=== PATIENT | female | born 1985 | race Two or more races ===

== ENCOUNTER 2018-07-28 20:34 | Emergency (ER) | payer MEDICARE, OTHER ==
[~2018-07-28] VITALS: Ht 157.5 cm; Wt 90.7 kg
--- NOTE | 2018-07-28 20:53 | NUR ---
admitted to er rm 2b ambulatory c/o constant headache for 1 month. bp checked 139/93. dr ryder will see & evaluate pt.
[2018-07-28] MEDS ORDERED: HYDROMORPHONE 2 MG/1 ML DISP.SYRIN ONE (20:58)
[2018-07-28] MEDS ORDERED: ONDANSETRON 4 MG/2 ML VIAL ONE (20:58)
[2018-07-28] MEDS ORDERED: ONDANSETRON 4 MG/2 ML VIAL IM ONE (21:00)
[2018-07-28] MEDS ORDERED: HYDROMORPHONE 1 MG/1 ML DISP.SYRIN IM ONE (21:00)
[2018-07-28 21:23] VITALS: BP 130/91
--- NOTE | 2018-07-28 21:25 | NUR ---
Patient discharged to home in stable conditon. Written and verbal after care instructions given. Patient verbalizes understanding of instructions.
== END 2018-07-28 21:25 | disposition home or self-care (01) ==
LOC: ER 20:34
DX: G43.909 Migraine, unspecified, not intractable, without status migrainosus (principal); I10 Essential (primary) hypertension; E03.9 Hypothyroidism, unspecified; F12.10 Cannabis abuse, uncomplicated; Z88.5 Allergy status to narcotic agent; Z88.8 Allergy status to other drugs, medicaments and biological substances
CPT/HCPCS: 96372 ×2; 99284; J1170; J2405; A4663

== ENCOUNTER 2018-08-01 15:54 | Emergency (ER) | payer MEDICARE, MEDICAID ==
[~2018-08-01] VITALS: Ht 152.4 cm; Wt 90.7 kg
--- NOTE | 2018-08-01 17:07 | NUR ---
Doctor at bedside examining patient.
--- NOTE | 2018-08-01 17:42 | NUR ---
Pt went for CT scan, ambulating in the presence of human resources technician
--- NOTE | 2018-08-01 17:43 | NUR ---
Pt refused blood draw. Physician aware.
--- NOTE | 2018-08-01 17:53 | NUR ---
PT. BACK FROM CT.
--- NOTE | 2018-08-01 18:10 | NUR ---
Report given to head charger.
[2018-08-01 18:17] LABS: BASOPHILS % (AUTO) 0.4 % (0.0-2.0); EOSINOPHILS # (AUTO) 0.1 K/uL (0.0-0.7); EOSINOPHILS % (AUTO) 1.3 % (0.0-7.0); HEMATOCRIT 40.4 % (31.2-41.9); HEMOGLOBIN 13.7 g/dL (10.9-14.3); LYMPHOCYTES # (AUTO) 2.2 K/uL (20.0-40.0); LYMPHOCYTES % (AUTO) 23.7 % (20.5-51.5); MEAN CORPUSCULAR HEMOGLOBIN 29.3 uug (24.7-32.8); MEAN CORPUSCULAR HGB CONC 34 g/dL (32.3-35.6); MEAN CORPUSCULAR VOLUME 86.6 fL (75.5-95.3); MONOCYTES # (AUTO) 0.5 K/uL (2.0-10.0); MONOCYTES % (AUTO) 5.8 % (0.0-11.0); NEUTROPHILS # (AUTO) 6.4 K/uL (1.8-8.9); NEUTROPHILS % (AUTO) 68.8 % (38.5-71.5); PLATELET COUNT (AUTO) 331 K/uL (179-408); RED BLOOD CELL COUNT(AUTO) 4.66 MIL/uL (3.63-4.92); WHITE BLOOD COUNT (AUTO) 9.4 K/uL (3.8-11.8)
[2018-08-01 18:26] LABS: CARBON DIOXIDE 24 mmol/L (21-32); CHLORIDE 105 mmol/L (98-107); CREATININE 0.7 mg/dL (0.6-1.3); GLUCOSE 81 mg/dL (74-106); POTASSIUM 3.8 mmol/L (3.5-5.1); UREA NITROGEN, BLOOD 16 mg/dL (7-18)
[2018-08-01 18:33] LABS: ALANINE AMINOTRANSFERASE 45 U/L (14-59); ALKALINE PHOSPHATASE 107 U/L (50-136); ASPARTATE AMINOTRANSFERASE 36 U/L (15-37); BILIRUBIN,DIRECT 0.1 mg/dL (0.0-0.2); BILIRUBIN,TOTAL 0.3 mg/dL (0.2-1.0); LIPASE 172 U/L (73-393); TOTAL PROTEIN, SERUM 7.4 g/dL (6.4-8.2)
== END 2018-08-01 18:45 | disposition home or self-care (01) ==
LOC: ER 15:56
DX: K27.9 Peptic ulcer, site unspecified, unspecified as acute or chronic, without hemorrhage or perforation (principal); I10 Essential (primary) hypertension; E03.9 Hypothyroidism, unspecified; F12.10 Cannabis abuse, uncomplicated; Z88.5 Allergy status to narcotic agent
CPT/HCPCS: 36415; 70030-TC; 83690; 85025; 85730; 93005; A4663

== ENCOUNTER 2018-08-05 15:02 | Emergency (ER) | payer MEDICARE, MEDICAID ==
[~2018-08-05] VITALS: Ht 160 cm; Wt 90.7 kg
[2018-08-05] MEDS ORDERED: KETOROLAC TROMETHAMINE 30 MG INJ IM ONE (15:45)
[2018-08-05] MEDS ORDERED: KETOROLAC TROMETHAMINE 30 MG INJ ONE (15:51)
--- NOTE | 2018-08-05 15:52 | NUR ---
Patient discharged to home in stable conditon & brisk steady gait. Written and verbal after care instructions given to patient and family. Patient and family verbalized understanding of instructions.
== END 2018-08-05 15:53 | disposition home or self-care (01) ==
LOC: ER 15:02
DX: R51 Headache (principal); F41.9 Anxiety disorder, unspecified; I10 Essential (primary) hypertension; E03.9 Hypothyroidism, unspecified; F12.10 Cannabis abuse, uncomplicated; Z88.5 Allergy status to narcotic agent; Z88.8 Allergy status to other drugs, medicaments and biological substances
CPT/HCPCS: 96372; 99283; J1885; A4663

== ENCOUNTER 2018-08-07 19:41 | Emergency (ER) | payer MEDICARE, MEDICAID ==
[~2018-08-07] VITALS: Ht 157.5 cm; Wt 90.7 kg
--- NOTE | 2018-08-07 19:58 | NUR ---
PATIENT COMES IN FROM HOME, SHE WAS SEEN IN THIS ER FOR C/O HEADACHES [address] MIXON. PATIENT WAS SENT HOME WITH INSTRUCTION TO F/U W/ NEUROLOGY. SHE IS UNABLE TO OBTAIN AN APPOINTMENT AT THIS TIME DUE TO A LENGTHY REFERAL PROCESS FROM [facility]. SHE COMES IN TODAY STATING HER SYMPTOMS ARE BECOMING WORSE AND SHE IS NOT IMPROVING WITH HER MOTRIN RX
--- NOTE | 2018-08-07 20:05 | NUR ---
Dr. Eddy at bedside for MSE.
[2018-08-07] MEDS ORDERED: HYDROMORPHONE HCL 2 MG TABLET PO ONE (20:15)
[2018-08-07] MEDS ORDERED: ONDANSETRON ODT 4 MG TAB.RAPDIS SL ONE (20:15)
[2018-08-07] MEDS ORDERED: diphenhydrAMINE 50 MG CAPSULE PO ONE (20:15)
[2018-08-07] MEDS ORDERED: HYDROMORPHONE HCL 2 MG TABLET ONE (20:18)
[2018-08-07] MEDS ORDERED: ONDANSETRON ODT 4 MG TAB.RAPDIS ONE (20:19)
[2018-08-07] MEDS ORDERED: diphenhydrAMINE 50 MG CAPSULE ONE (20:19)
--- NOTE | 2018-08-07 20:28 | NUR ---
Patient discharged to home in stable conditon. Written and verbal after care instructions given. Patient verbalizes understanding of instructions. Pt ambulated out of ER with steady gait, no acute signs of distress, VSS, all belongings taken.
[2018-08-07 20:31] VITALS: BP 146/98
== END 2018-08-07 20:31 | disposition home or self-care (01) ==
LOC: ER 19:43
DX: G89.29 Other chronic pain (principal); R51 Headache; I10 Essential (primary) hypertension; E03.9 Hypothyroidism, unspecified; F12.10 Cannabis abuse, uncomplicated; Z88.5 Allergy status to narcotic agent; Z88.8 Allergy status to other drugs, medicaments and biological substances
CPT/HCPCS: 99284; Q0163; A4663; Q0162

== ENCOUNTER 2018-08-11 19:19 | Emergency (ER) | payer MEDICARE, MEDICAID ==
--- NOTE | 2018-08-11 19:55 | NUR ---
PATIENT LEFT WITHOUT BEING SEEN BY ERMD OR TRIAGED
[2018-08-12] MEDS ORDERED: LEVO75TA7 PO (16:48)
[2018-08-12] MEDS ORDERED: DESV100T PO (16:48)
[2018-08-12] MEDS ORDERED: GABA800T2 PO (16:48)
[2018-08-12] MEDS ORDERED: PROP80CA PO (16:49)
[2018-08-12] MEDS ORDERED: LISI-607 PO (16:49)
== END 2018-08-11 19:58 | disposition left against medical advice (07) ==
LOC: ER 19:20
DX: Z53.21 Procedure and treatment not carried out due to patient leaving prior to being seen by health care provider (principal)

== ENCOUNTER 2018-08-12 16:40 | Emergency (ER) | payer MEDICARE, MEDICAID ==
[~2018-08-12] VITALS: Ht 157.5 cm; Wt 90.7 kg
[2018-08-12] MEDS ORDERED: GABA800T2 PO (16:48)
[2018-08-12] MEDS ORDERED: LEVO75TA7 PO (16:48)
[2018-08-12] MEDS ORDERED: DESV100T PO (16:48)
[2018-08-12] MEDS ORDERED: LISI-607 PO (16:49)
[2018-08-12] MEDS ORDERED: PROP80CA PO (16:49)
[2018-08-12] MEDS ORDERED: HYDROMORPHONE 2 MG/1 ML DISP.SYRIN ONE (16:59)
[2018-08-12] MEDS ORDERED: diphenhydrAMINE 50 MG/1 ML VIAL ONE (16:59)
[2018-08-12] MEDS: diphenhydrAMINE 50 MG/1 ML VIAL IM ONE (17:03)
[2018-08-12] MEDS: HYDROMORPHONE 1 MG/1 ML DISP.SYRIN IM ONE (17:03)
--- NOTE | 2018-08-12 17:05 | NUR ---
Patient discharged to home in stable conditon. Written and verbal after care instructions given. Patient verbalizes understanding of instructions.PT WALKS IN STEADY GAIT. PT USING UBER, NOT DRIVING.
== END 2018-08-12 17:07 | disposition home or self-care (01) ==
LOC: ER 16:40
DX: R51 Headache (principal); I10 Essential (primary) hypertension; E03.9 Hypothyroidism, unspecified; F12.10 Cannabis abuse, uncomplicated; Z88.5 Allergy status to narcotic agent; Z88.8 Allergy status to other drugs, medicaments and biological substances
CPT/HCPCS: 96372 ×2; 99284; J1170; J1200; A4663

== ENCOUNTER 2018-08-15 16:19 | Emergency (ER) | payer MEDICARE, MEDICAID ==
[~2018-08-15] VITALS: Ht 157.5 cm; Wt 86.2 kg
[~2018-08-15 16:19] MED LIST: DESV100T PO; GABA800T2 PO; LEVO75TA7 PO; LISI-607 PO; PROP80CA PO
--- NOTE | 2018-08-15 16:40 | NUR ---
Pt was triaged and placed in ER waiting room.
--- NOTE | 2018-08-15 17:01 | NUR ---
Pt was not found in ER waiting room.
== END 2018-08-15 17:09 | disposition left against medical advice (07) ==
LOC: ER 16:19
DX: Z53.21 Procedure and treatment not carried out due to patient leaving prior to being seen by health care provider (principal)
CPT/HCPCS: A4663

== ENCOUNTER 2018-08-16 20:28 | Emergency (ER) | payer MEDICARE, MEDICAID ==
[~2018-08-16] VITALS: Ht 157.5 cm; Wt 89.4 kg
[2018-08-16] MEDS ORDERED: KETOROLAC TROMETHAMINE 15 MG INJ IM ONE (21:00)
[2018-08-16] MEDS ORDERED: KETOROLAC TROMETHAMINE 15 MG INJ ONE (21:01)
== END 2018-08-16 21:08 | disposition home or self-care (01) ==
LOC: ER 20:30
DX: R51 Headache (principal); I10 Essential (primary) hypertension; E03.9 Hypothyroidism, unspecified; F12.10 Cannabis abuse, uncomplicated; Z88.5 Allergy status to narcotic agent; Z88.8 Allergy status to other drugs, medicaments and biological substances
CPT/HCPCS: 96372; 99283; J1885; A4663

== ENCOUNTER 2018-09-01 18:09 | Emergency (ER) | payer MEDICARE, MEDICAID ==
[~2018-09-01] VITALS: Ht 157.5 cm; Wt 84.8 kg
== END 2018-09-01 18:27 | disposition left against medical advice (07) ==
LOC: ER 18:10
DX: Z53.21 Procedure and treatment not carried out due to patient leaving prior to being seen by health care provider (principal)
CPT/HCPCS: A4663

== ENCOUNTER 2020-02-24 15:52 | Emergency (ER) | payer MEDICARE, OTHER ==
[~2020-02-24] VITALS: Ht 157.5 cm; Wt 104.3 kg
[~2020-02-24 15:52] MED LIST changes: +GABA800T11 PO; -GABA800T2 PO; -PROP80CA PO; +PROP80CA51 PO
[2020-02-24] MEDS ORDERED: IV NORMAL SALINE 1000 ML BAG IV ONE (16:15)
[2020-02-24] MEDS ORDERED: LORAZEPAM 2 MG/1 ML VIAL IV ONE (16:15)
[2020-02-24] MEDS ORDERED: THIAMINE HCL 200 MG/2 ML VIAL IV ONE (16:15)
[2020-02-24] MEDS ORDERED: ONDANSETRON 4 MG/2 ML VIAL IV ONE (16:15)
[2020-02-24] MEDS ORDERED: FOLIC ACID/VITAMIN B COMP W-C TABLET PO SCH (16:15)
[2020-02-24] MEDS ORDERED: THIAMINE HCL 200 MG/2 ML VIAL ONE (16:31)
[2020-02-24] MEDS ORDERED: ONDANSETRON 4 MG/2 ML VIAL ONE (16:31)
[2020-02-24] MEDS ORDERED: LORAZEPAM 2 MG/1 ML VIAL ONE (16:32)
[2020-02-24 16:41] LABS: BASOPHILS % (AUTO) 0.4 % (0.0-2.0); EOSINOPHILS # (AUTO) 0.1 K/uL (0.0-0.7); EOSINOPHILS % (AUTO) 0.5 % (0.0-7.0); HEMATOCRIT 33.9 % (31.2-41.9); LYMPHOCYTES # (AUTO) 2.8 K/uL (20.0-40.0); LYMPHOCYTES % (AUTO) 24.7 % (20.5-51.5); MEAN CORPUSCULAR HEMOGLOBIN 22.3 uug (24.7-32.8); MEAN CORPUSCULAR HGB CONC 32 g/dL (32.3-35.6); MEAN CORPUSCULAR VOLUME 68.9 fL (75.5-95.3); MONOCYTES # (AUTO) 0.7 K/uL (2.0-10.0); MONOCYTES % (AUTO) 6.3 % (0.0-11.0); NEUTROPHILS # (AUTO) 7.7 K/uL (1.8-8.9); NEUTROPHILS % (AUTO) 68.1 % (38.5-71.5); PLATELET COUNT (AUTO) 531 K/uL (179-408); RED BLOOD CELL COUNT(AUTO) 4.93 MIL/uL (3.63-4.92); WHITE BLOOD COUNT (AUTO) 11.3 K/uL (3.8-11.8)
[2020-02-24 16:45] LABS: CREATININE 0.8 mg/dL (0.6-1.3); POTASSIUM 3.3 mmol/L (3.5-5.1)
[2020-02-24] MEDS ORDERED: MULTIVIT, IRON, MIN NO. 8, FA TABLET PO SCH (16:45)
[2020-02-24 16:51] LABS: BILIRUBIN,DIRECT 0.1 mg/dL (0.0-0.2); BILIRUBIN,TOTAL 0.2 mg/dL (0.2-1.0); TOTAL PROTEIN, SERUM 7.6 g/dL (6.4-8.2)
--- NOTE | 2020-02-24 17:54 | NUR ---
Patient discharged to home in stable condition. Written and verbal after care instructions given. Patient verbalizes understanding of instructions. pt walks in steady gait. pt not driving. pt says feels better. Stressed follow up or return to ER for worsening s/s.
[2020-02-24 17:55] VITALS: BP 131/81
== END 2020-02-24 17:56 | disposition home or self-care (01) ==
LOC: ER 16:00
DX: F10.239 Alcohol dependence with withdrawal, unspecified (principal); Y90.6 Blood alcohol level of 120-199 mg/100 ml; R25.1 Tremor, unspecified; E03.9 Hypothyroidism, unspecified; G43.909 Migraine, unspecified, not intractable, without status migrainosus; I10 Essential (primary) hypertension; Z90.721 Acquired absence of ovaries, unilateral; Z79.890 Hormone replacement therapy; Z79.899 Other long term (current) drug therapy
CPT/HCPCS: 36415; 71045; 80048; 80076; 80307; 82140; 83690; 84443; 84484; 85025; 85730; 93005; 96361; 96374; 96375; 99285; J2060; J2405; J3411; 70030-TC; A4663; G0480; J7030

== ENCOUNTER 2020-03-12 07:15 | Emergency (ER) | payer MEDICARE, OTHER ==
[~2020-03-12] VITALS: Ht 157.5 cm; Wt 104.3 kg
--- NOTE | 2020-03-12 07:38 | NUR ---
Dr. Álvarez at bedside for MSE
[2020-03-12] MEDS ORDERED: CLONAZEPAM 0.5 MG TABLET PO ONE (07:45)
[2020-03-12] MEDS ORDERED: CLONAZEPAM 1 MG TABLET ONE (07:52)
[2020-03-12 08:06] LABS: BASOPHILS # (AUTO) 0.1 K/uL (0.0-8.0); BASOPHILS % (AUTO) 0.7 % (0.0-2.0); EOSINOPHILS # (AUTO) 0.1 K/uL (0.0-0.7); EOSINOPHILS % (AUTO) 1.1 % (0.0-7.0); HEMATOCRIT 32.4 % (31.2-41.9); HEMOGLOBIN 10.1 g/dL (10.9-14.3); LYMPHOCYTES # (AUTO) 3.1 K/uL (20.0-40.0); LYMPHOCYTES % (AUTO) 27.4 % (20.5-51.5); MEAN CORPUSCULAR HEMOGLOBIN 21.3 uug (24.7-32.8); MEAN CORPUSCULAR HGB CONC 31 g/dL (32.3-35.6); MEAN CORPUSCULAR VOLUME 68.1 fL (75.5-95.3); MONOCYTES # (AUTO) 0.7 K/uL (2.0-10.0); MONOCYTES % (AUTO) 6.6 % (0.0-11.0); NEUTROPHILS # (AUTO) 7.2 K/uL (1.8-8.9); NEUTROPHILS % (AUTO) 64.2 % (38.5-71.5); PLATELET COUNT (AUTO) 494 K/uL (179-408); RED BLOOD CELL COUNT(AUTO) 4.76 MIL/uL (3.63-4.92); WHITE BLOOD COUNT (AUTO) 11.2 K/uL (3.8-11.8)
[2020-03-12 08:21] LABS: CREATININE 0.8 mg/dL (0.6-1.3); POTASSIUM 3.2 mmol/L (3.5-5.1)
[2020-03-12] MEDS ORDERED: LOPERAMIDE HCL 2 MG CAPSULE ONE (08:25)
[2020-03-12 08:28] LABS: BILIRUBIN,DIRECT 0.1 mg/dL (0.0-0.2); BILIRUBIN,TOTAL 0.4 mg/dL (0.2-1.0); TOTAL PROTEIN, SERUM 7.5 g/dL (6.4-8.2)
[2020-03-12] MEDS ORDERED: POTASSIUM BICARBONATE/CIT AC 25 MEQ TABLET.EFF ONE (08:30)
[2020-03-12] MEDS ORDERED: POTASSIUM BICARBONATE/CIT AC 25 MEQ TABLET.EFF PO ONE (08:30)
[2020-03-12] MEDS ORDERED: LOPERAMIDE HCL 2 MG CAPSULE PO ONE (08:30)
[2020-03-12 08:34] LABS: THYROID STIMULATING HORMONE 1.909 mIU/mL (0.358-3.740)
--- NOTE | 2020-03-12 09:19 | NUR ---
Patient discharged to home in stable condition. Written and verbal after care instructions given. Patient verbalizes understanding of instructions. Stressed follow up or return to ER for worsening s/s. Patient ambulating with steady gait. Patient's friend at waiting room to take patient home. NAD noted
[2020-03-12 09:20] VITALS: BP 142/83
== END 2020-03-12 09:19 | disposition home or self-care (01) ==
LOC: ER 07:15
DX: F41.9 Anxiety disorder, unspecified (principal); G25.71 Drug induced akathisia; F10.21 Alcohol dependence, in remission; E03.9 Hypothyroidism, unspecified; Z79.890 Hormone replacement therapy; Z79.899 Other long term (current) drug therapy; E87.6 Hypokalemia; K52.9 Noninfective gastroenteritis and colitis, unspecified
CPT/HCPCS: 36415; 70030-TC; 83735; 84443; 85025; A4663

== ENCOUNTER 2020-03-26 06:00 | Emergency (ER) | payer MEDICARE, OTHER ==
[~2020-03-26] VITALS: Ht 157.5 cm; Wt 104.3 kg
[2020-03-26] MEDS ORDERED: VENL150C2 PO (06:06)
--- NOTE | 2020-03-26 06:23 | NUR ---
Dr. Jacobson at bedside for MSE.
[2020-03-26] MEDS ORDERED: LORAZEPAM 2 MG/1 ML VIAL ONE (06:28)
[2020-03-26 06:30] VITALS: BP 123/84
[2020-03-26] MEDS ORDERED: LORAZEPAM 2 MG/1 ML VIAL IM ONE (06:30)
--- NOTE | 2020-03-26 06:30 | NUR ---
Patient discharged to home in stable condition. Written and verbal after care instructions given. Patient verbalizes understanding of instructions. Stressed follow up or return to ER for worsening s/s. Patient ambulated out of ER with steady gait, no acute signs of distress, VSS, all belongings taken.
== END 2020-03-26 06:30 | disposition home or self-care (01) ==
LOC: ER 06:02
DX: F41.9 Anxiety disorder, unspecified (principal); I10 Essential (primary) hypertension; Z98.84 Bariatric surgery status; Z86.69 Personal history of other diseases of the nervous system and sense organs; F31.9 Bipolar disorder, unspecified; E03.9 Hypothyroidism, unspecified
CPT/HCPCS: 96372; 99283; J2060; A4663

== ENCOUNTER 2020-03-29 17:18 | Emergency (ER) | payer MEDICARE, OTHER ==
[~2020-03-29] VITALS: Ht 157.5 cm; Wt 104.3 kg
[~2020-03-29 17:18] MED LIST changes: -DESV100T PO; +VENL150C2 PO
--- NOTE | 2020-03-29 17:38 | NUR ---
DR GUERRERO AT BEDSIDE FOR EVAL
[2020-03-29] MEDS ORDERED: ALPRAZOLAM 0.25 MG TABLET PO ONE (17:45)
--- NOTE | 2020-03-29 17:45 | NUR ---
MEDICATION GIVEN ORDERED. PATIENT STATES SHE IS NOT DRIVING. SHE STATES SHE UNDERSTANDS ALL PRECAUTONS AND WARNINGS STATED TO HER ABOUT XANAX.
[2020-03-29] MEDS ORDERED: ALPRAZOLAM 0.5 MG TABLET ONE (17:46)
--- NOTE | 2020-03-29 17:46 | NUR ---
DC AND FOLLOW UP INSTRUCTIONS GIVEN AND EXPLAINED TO PATIENT WHO STATES SHE UNDERSTANDS ALL INSTRUCTIONS INCLUDING XANAX PRECAUTIONS.
== END 2020-03-29 17:47 | disposition home or self-care (01) ==
LOC: ER 17:21
DX: F41.9 Anxiety disorder, unspecified (principal); F10.21 Alcohol dependence, in remission; F31.9 Bipolar disorder, unspecified; E03.9 Hypothyroidism, unspecified; I10 Essential (primary) hypertension; F41.0 Panic disorder [episodic paroxysmal anxiety]; Z86.69 Personal history of other diseases of the nervous system and sense organs; Z79.899 Other long term (current) drug therapy; Z79.890 Hormone replacement therapy
CPT/HCPCS: A4663

== ENCOUNTER 2020-08-11 21:44 | Emergency (ER) | payer MEDICARE, OTHER ==
[~2020-08-11] VITALS: Ht 157.5 cm; Wt 104.3 kg
--- NOTE | 2020-08-11 23:10 | NUR ---
Patient states she drinks 12 pack of beer in the last 2 weeks. Came in requesting to be medical cleared so she can admit herself to an MHU facility as a voluntary admission. Patient with no N/V, tremors noted. Denies any distress.
[2020-08-11 23:47] LABS: BASOPHILS # (AUTO) 0.1 K/uL (0.0-8.0); BASOPHILS % (AUTO) 0.8 % (0.0-2.0); EOSINOPHILS # (AUTO) 0.1 K/uL (0.0-0.7); EOSINOPHILS % (AUTO) 1.3 % (0.0-7.0); HEMATOCRIT 43.9 % (31.2-41.9); HEMOGLOBIN 14.9 g/dL (10.9-14.3); LYMPHOCYTES # (AUTO) 4.1 K/uL (20.0-40.0); LYMPHOCYTES % (AUTO) 37.4 % (20.5-51.5); MEAN CORPUSCULAR HEMOGLOBIN 26.9 uug (24.7-32.8); MEAN CORPUSCULAR HGB CONC 34 g/dL (32.3-35.6); MEAN CORPUSCULAR VOLUME 79.1 fL (75.5-95.3); MONOCYTES # (AUTO) 0.6 K/uL (2.0-10.0); MONOCYTES % (AUTO) 5.6 % (0.0-11.0); NEUTROPHILS # (AUTO) 6.1 K/uL (1.8-8.9); NEUTROPHILS % (AUTO) 54.9 % (38.5-71.5); PLATELET COUNT (AUTO) 400 K/uL (179-408); RED BLOOD CELL COUNT(AUTO) 5.55 MIL/uL (3.63-4.92); WHITE BLOOD COUNT (AUTO) 11.1 K/uL (3.8-11.8)
[2020-08-12 00:02] LABS: BILIRUBIN,DIRECT 0.1 mg/dL (0.0-0.2); BILIRUBIN,TOTAL 0.1 mg/dL (0.2-1.0); CREATININE 0.7 mg/dL (0.6-1.3); TOTAL PROTEIN, SERUM 8.1 g/dL (6.4-8.2)
[2020-08-12 00:07] LABS: POTASSIUM 2.8 mmol/L (3.5-5.1)
[2020-08-12] MEDS ORDERED: POTASSIUM BICARBONATE/CIT AC 25 MEQ TABLET.EFF PO ONE (00:15)
[2020-08-12] MEDS ORDERED: POTASSIUM BICARBONATE/CIT AC 25 MEQ TABLET.EFF ONE (00:38)
[2020-08-12] MEDS ORDERED: LORAZEPAM 0.5 MG TABLET ONE (00:39)
[2020-08-12] MEDS ORDERED: LORAZEPAM 0.5 MG TABLET PO ONE (00:45)
--- NOTE | 2020-08-12 00:56 | NUR ---
Patient discharged to home in stable condition with [facility] taking patient home. Written and verbal after care instructions given. Patient verbalizes understanding of instructions. Stressed follow up or return to ER for worsening s/s.
[2020-08-12 01:01] VITALS: BP 125/89
== END 2020-08-12 01:02 | disposition home or self-care (01) ==
LOC: ER 21:48
DX: Z02.2 Encounter for examination for admission to residential institution (principal); F10.20 Alcohol dependence, uncomplicated; E87.6 Hypokalemia; R00.0 Tachycardia, unspecified; I45.10 Unspecified right bundle-branch block; F31.9 Bipolar disorder, unspecified; E03.9 Hypothyroidism, unspecified; Z79.890 Hormone replacement therapy; I10 Essential (primary) hypertension; Z79.899 Other long term (current) drug therapy; Z86.69 Personal history of other diseases of the nervous system and sense organs
CPT/HCPCS: 36415; 85025; 93005; A4663

== ENCOUNTER 2020-11-12 07:59 | Emergency (ER) | payer MEDICARE, OTHER ==
[~2020-11-12] VITALS: Ht 157.5 cm; Wt 104.3 kg
[~2020-11-12 07:59] MED LIST changes: -LISI-607 PO; +LISI-782 PO
[2020-11-12] MEDS ORDERED: LEVO75TA7 PO (08:18)
[2020-11-12] MEDS ORDERED: HYDR50TA4 PO (08:18)
[2020-11-12] MEDS ORDERED: LURA80TA PO (08:18)
[2020-11-12] MEDS ORDERED: ONDANSETRON 4 MG/2 ML VIAL IV ONE (08:30)
[2020-11-12] MEDS ORDERED: IV NORMAL SALINE 1000 ML BAG IV ONE (08:30)
[2020-11-12] MEDS ORDERED: LORAZEPAM 2 MG/1 ML VIAL IV ONE ×2 (08:30→09:45)
--- NOTE | 2020-11-12 08:30 | NUR ---
Patient walked into ER with steady gait A/Ox3 c/o RIVAS with hematoma on right orbital, bilateral lower extremity and right arm pain. Patient states she has been binge drinking for the past 4 days and fell and hit head within the last 4 days. Also c/o ETOH withdrawal with nausea.
[2020-11-12] MEDS ORDERED: LORAZEPAM 2 MG/1 ML VIAL ONE ×2 (08:41→09:45)
[2020-11-12] MEDS ORDERED: ONDANSETRON 4 MG/2 ML VIAL ONE (08:41)
--- NOTE | 2020-11-12 08:41 | NUR ---
Patient out of unit for ct scan
[2020-11-12 08:56] LABS: BASOPHILS % (AUTO) 0.5 % (0.0-2.0); HEMATOCRIT 43.3 % (31.2-41.9); HEMOGLOBIN 14.7 g/dL (10.9-14.3); LYMPHOCYTES # (AUTO) 2.1 K/uL (20.0-40.0); LYMPHOCYTES % (AUTO) 28.2 % (20.5-51.5); MEAN CORPUSCULAR HEMOGLOBIN 26.7 uug (24.7-32.8); MEAN CORPUSCULAR HGB CONC 34 g/dL (32.3-35.6); MEAN CORPUSCULAR VOLUME 78.7 fL (75.5-95.3); MONOCYTES # (AUTO) 0.8 K/uL (2.0-10.0); MONOCYTES % (AUTO) 10.8 % (0.0-11.0); NEUTROPHILS # (AUTO) 4.6 K/uL (1.8-8.9); NEUTROPHILS % (AUTO) 60.5 % (38.5-71.5); PLATELET COUNT (AUTO) 277 K/uL (179-408); WHITE BLOOD COUNT (AUTO) 7.5 K/uL (3.8-11.8)
--- NOTE | 2020-11-12 08:56 | NUR ---
Patient back from ct scan with no distress noted.
--- NOTE | 2020-11-12 09:00 | NUR ---
Patient able tolerate PO fluid with no N/V.
[2020-11-12 09:05] LABS: CREATININE 0.7 mg/dL (0.6-1.3); POTASSIUM 4.4 mmol/L (3.5-5.1)
[2020-11-12 09:16] LABS: BILIRUBIN,DIRECT 0.5 mg/dL (0.0-0.2); BILIRUBIN,TOTAL 0.3 mg/dL (0.2-1.0); TOTAL PROTEIN, SERUM 7.4 g/dL (6.4-8.2)
[2020-11-12] MEDS ORDERED: LORA-259 PO (10:18)
--- NOTE | 2020-11-12 10:21 | NUR ---
IV removed. Catheter intact and site benign. Pressure and 4x4 gauze applied to site. No bleeding noted.
--- NOTE | 2020-11-12 10:25 | NUR ---
Patient requesting to be D/C'ed.
--- NOTE | 2020-11-12 10:33 | NUR ---
Patient discharged to home in stable condition. Written and verbal after care instructions given. Patient verbalizes understanding of instructions. Stressed follow up or return to ER for worsening s/s.
[2020-11-12 10:34] VITALS: BP 150/100
== END 2020-11-12 10:35 | disposition home or self-care (01) ==
LOC: ER 07:59
DX: F10.239 Alcohol dependence with withdrawal, unspecified (principal); F10.229 Alcohol dependence with intoxication, unspecified; Y90.6 Blood alcohol level of 120-199 mg/100 ml; S00.11XA Contusion of right eyelid and periocular area, initial encounter; W19.XXXA Unspecified fall, initial encounter; Y92.89 Other specified places as the place of occurrence of the external cause; E86.0 Dehydration; R74.01 Elevation of levels of liver transaminase levels; I10 Essential (primary) hypertension; F31.9 Bipolar disorder, unspecified; E07.9 Disorder of thyroid, unspecified; Z79.890 Hormone replacement therapy; Z98.84 Bariatric surgery status; Z90.721 Acquired absence of ovaries, unilateral; R51.9 Headache, unspecified; Z88.6 Allergy status to analgesic agent; Z79.899 Other long term (current) drug therapy
CPT/HCPCS: 36415; 70450; 70480; 80048; 80076; 80320; 85025; 96361; 96374; 96375; 96376; 99285; J2060 ×2; J2405; A4663; G0480; J7030

== ENCOUNTER 2020-11-30 21:33 | Inpatient (IN) | payer MEDICARE, OTHER ==
[~2020-11-30] VITALS: Ht 162.6 cm; Wt 112.6 kg
[~2020-11-30 21:33] MED LIST changes: +HYDR50TA4 PO; +LORA-259 PO; +LURA80TA PO
[2020-11-30] MEDS ORDERED: IV NS 1000 ML 1,000 ML IV ONE (22:15)
[2020-11-30] MEDS ORDERED: HALOPERIDOL LACTATE 5 MG/1 ML VIAL ONE (22:27)
[2020-11-30] MEDS ORDERED: HALOPERIDOL LACTATE 5 MG/1 ML VIAL IM ONE (22:30)
[2020-11-30 22:34] LABS: BASOPHILS % (AUTO) 0.3 % (0.0-2.0); HEMATOCRIT 42.2 % (31.2-41.9); HEMOGLOBIN 13.8 g/dL (10.9-14.3); LYMPHOCYTES # (AUTO) 1.9 K/uL (20.0-40.0); LYMPHOCYTES % (AUTO) 12.4 % (20.5-51.5); MEAN CORPUSCULAR HEMOGLOBIN 26.2 uug (24.7-32.8); MEAN CORPUSCULAR HGB CONC 33 g/dL (32.3-35.6); MEAN CORPUSCULAR VOLUME 80.2 fL (75.5-95.3); MONOCYTES # (AUTO) 1.8 K/uL (2.0-10.0); MONOCYTES % (AUTO) 11.8 % (0.0-11.0); NEUTROPHILS # (AUTO) 11.8 K/uL (1.8-8.9); NEUTROPHILS % (AUTO) 75.5 % (38.5-71.5); PLATELET COUNT (AUTO) 549 K/uL (179-408); RED BLOOD CELL COUNT(AUTO) 5.27 MIL/uL (3.63-4.92); WHITE BLOOD COUNT (AUTO) 15.7 K/uL (3.8-11.8)
[2020-11-30 22:47] LABS: ABG BASE EXCESS -10.9 mmol/L; ABG HCO3 13.3 mmol/L; ABG PCO2 26.2 mmHg (35.0-45.0); ABG PH 7.324 (7.350-7.450); ABG PO2 80.1 mmHg (75.0-100.0); ABG SITE RIGHT RADIAL; ABG TOTAL HEMOGLOBIN 13.8 G/dL (12.0-16.0); MetHb 0.2 % (0.0-1.5); O2Hb 93.4 % (94.0-97.0)
[2020-11-30 22:50] LABS: BILIRUBIN,DIRECT 0.2 mg/dL (0.0-0.2); BILIRUBIN,TOTAL 0.3 mg/dL (0.2-1.0); CREATININE 1.3 mg/dL (0.6-1.3); POTASSIUM 3.6 mmol/L (3.5-5.1)
[2020-11-30] MEDS ORDERED: HYDR50TA61 PO (23:24)
[2020-11-30] MEDS ORDERED: POTA-10 PO (23:24)
[2020-11-30] MEDS ORDERED: TRIH2TAB4 PO (23:24)
[2020-11-30] MEDS ORDERED: CLON1TAB PO (23:24)
[2020-11-30] MEDS ORDERED: CLON-418 PO (23:24)
[2020-11-30] MEDS ORDERED: KETAMINE HCL 500 MG/10 ML INJ ONE (23:59)
[2020-12-01] MEDS ORDERED: AZITHROMYCIN IV 500 MG in IV DEXTROSE 5% 250 ML IV ONE
[2020-12-01] MEDS ORDERED: PIPERACILLIN SODIUM/TAZOBACTAM 3.375 G in IV DEXTROSE 5% 50 ML IV ONE
[2020-12-01] MEDS ORDERED: PIPERACILLIN/TAZOBACTAM/D5W 50 ML IV ONE (00:12)
[2020-12-01] MEDS ORDERED: FOLIC ACID 5 MG/ML VIAL IV ONE ×2 (00:30→00:33)
[2020-12-01] MEDS ORDERED: THIAMINE HCL 200 MG/2 ML VIAL IV ONE (00:30)
[2020-12-01] MEDS ORDERED: IV LACTATED RINGERS SOLUTION 1,000 ML IV PRN (00:30)
[2020-12-01] MEDS ORDERED: THIAMINE HCL 200 MG/2 ML VIAL ONE ×2 (00:32→05:16)
[2020-12-01] MEDS: MAGNESIUM SULFATE/D5W 100 ML IV SCH ×2 (00:33→01:38)
[2020-12-01] MEDS ORDERED: MAGNESIUM SULFATE 1 GM/2 ML VIAL ONE (00:33)
[2020-12-01] MEDS ORDERED: AZITHROMYCIN 500 MG VIAL IV ONE (00:40)
[2020-12-01 00:46] LABS: CREATININE 1.1 mg/dL (0.6-1.3); POTASSIUM 3.4 mmol/L (3.5-5.1)
--- NOTE | 2020-12-01 01:10 | NUR ---
Patient states " Im going to poop on the bed just to make you clean it up". Patient educated on self perineal care and independent self care. patient attempted to get out of bed, increasingly agitated, stating " Im gonna shit all over it and make you clean it, ceci thats what you guys do!"
[2020-12-01] MEDS ORDERED: KETAMINE HCL 500 MG/10 ML INJ ONE ×2 (01:39→04:30)
[2020-12-01] MEDS ORDERED: KETAMINE HCL 500 MG/10 ML INJ IVP ONE (01:45)
[2020-12-01] MEDS ORDERED: KETAMINE HCL 500 MG/10 ML INJ IM ONE (01:45)
--- NOTE | 2020-12-01 01:59 | NUR ---
Patient in bed, continues to be agitated, Awaiting further plan of care updates/inpatient admission.
--- NOTE | 2020-12-01 02:28 | NUR ---
Patient noted with 1 large BM, perineal care provided, Patient placed in diaper
--- NOTE | 2020-12-01 02:44 | NUR ---
Panel call placed to [facility] for panel call
--- NOTE | 2020-12-01 02:57 | NUR ---
Patient to be admitted to Tele-TD, report to Jose Eduardo BERTRAND. Admitting Provider; Yovany Delvalle
[2020-12-01] MEDS ORDERED: IV D5W 1000ML 1,000 ML IV ONE (03:15)
[2020-12-01] MEDS ORDERED: IV D5/ 0.9% NACL 1,000 ML IV PRN (03:15)
[2020-12-01] MEDS ORDERED: THIAMINE HCL INJ 100 MG in IV DEXTROSE 5% 50 ML IV SCH ×2 (03:15→21:00)
[2020-12-01] MEDS ORDERED: ACETAMINOPHEN 325 MG TABLET PO PRN ×2 (03:15→04:15)
[2020-12-01] MEDS ORDERED: MAGNESIUM HYDROXIDE 30 ML LIQUID UDC PO PRN (03:15)
[2020-12-01] MEDS ORDERED: Z GUARD REMEDY PASTE 57 GM TUBE TOP PRN (03:15)
[2020-12-01] MEDS ORDERED: IV D5LR 1,000 ML IV ONE (03:15)
[2020-12-01] MEDS ORDERED: ONDANSETRON 4 MG/2 ML VIAL IV PRN (03:15)
[2020-12-01] MEDS ORDERED: FOLIC ACID 1 MG in IV DEXTROSE 5% 50 ML IV SCH ×2 (03:30→22:00)
--- NOTE | 2020-12-01 03:40 | NUR ---
Admitted a 35 y.o female with a diagnosis of alcoholic ketoacidosis. Pt transferred to bed, safety measures initiated, admission care rendered. Pt.was drowsy, combative and restless. Incontinent of BM, cleaned and kept dry. IV access gauge 16 on R AC intact and patent. Unable to put on tele box secondary to patient's restlessness. Skin with multiple bruising and with R periorbital hematoma. Sindy Pedroza, SCAGLIOLA MECHANIC with admission orders and carried out. Patient's behavior relayed to SCAGLIOLA MECHANIC. Ativan 2mg as given earlier, no avail. Ketalar 20mg ordered but not available, and is not allowed to be administered at bedside. continue to monitor patient's condition. Haldol 5mg IM given for severe agitation and disruptive behavior. IV access had been reinserted multiple times secondary to patient's actions. Still continuos screaming and yelling. Multiple attempts of getting OOB. Soft wrist restraints applied as ordered to prevent pulling out of medical devices.
[2020-12-01] MEDS ORDERED: hydrOXYzine HCL 25 MG TABLET PO PRN (03:45)
[2020-12-01 04:00] VITALS: BP 133/14
[2020-12-01] MEDS ORDERED: KETAMINE HCL 500 MG/10 ML INJ IV ONE ×3 (04:00→04:45)
[2020-12-01] MEDS ORDERED: CLONIDINE HCL 0.2 MG TABLET PO PRN (04:15)
[2020-12-01] MEDS: LORAZEPAM 2 MG/1 ML VIAL IV PRN ×2 (04:19→08:01)
[2020-12-01] MEDS ORDERED: HALOPERIDOL LACTATE 5 MG/1 ML VIAL IM ONE (04:45)
[2020-12-01] MEDS: POTASSIUM CHLORIDE 50 ML IV SCH ×2 (04:59→05:00)
--- NOTE | 2020-12-01 05:00 | NUR ---
Ordered medications administered and tolerated well. Tele reading is sinus Tach with 135. Neurochecks done and recorded.
[2020-12-01] MEDS ORDERED: PYRIDOXINE HCL 100 MG/1 ML VIAL ONE (05:15)
[2020-12-01] MEDS ORDERED: PANTOPRAZOLE SODIUM 40 MG TABLET.DR PO SCH (07:00)
[2020-12-01] MEDS ORDERED: LEVOTHYROXINE SODIUM 75 MCG TABLET PO SCH (07:00)
--- NOTE | 2020-12-01 07:00 | NUR ---
Pt refused ABG. RN aware.
[2020-12-01 07:15] LABS: BASOPHILS % (AUTO) 0.3 % (0.0-2.0); HEMATOCRIT 36.3 % (31.2-41.9); LYMPHOCYTES # (AUTO) 3.2 K/uL (20.0-40.0); LYMPHOCYTES % (AUTO) 26.5 % (20.5-51.5); MEAN CORPUSCULAR HEMOGLOBIN 26.3 uug (24.7-32.8); MEAN CORPUSCULAR HGB CONC 33 g/dL (32.3-35.6); MEAN CORPUSCULAR VOLUME 79.8 fL (75.5-95.3); MONOCYTES % (AUTO) 8.2 % (0.0-11.0); NEUTROPHILS # (AUTO) 7.9 K/uL (1.8-8.9); PLATELET COUNT (AUTO) 423 K/uL (179-408); RED BLOOD CELL COUNT(AUTO) 4.55 MIL/uL (3.63-4.92); WHITE BLOOD COUNT (AUTO) 12.1 K/uL (3.8-11.8)
--- NOTE | 2020-12-01 07:30 | NUR ---
Endorsed to AM nurse in apparently fair condition. IV access on right AC 22 gauge intact and patent. No acute distress at this time. Frequent monitoring to continue.
[2020-12-01 07:39] LABS: BILIRUBIN,TOTAL 0.6 mg/dL (0.2-1.0); CREATININE 0.9 mg/dL (0.6-1.3); MAGNESIUM 1.6 mg/dL (1.8-2.4); PHOSPHOROUS 1.7 mg/dL (2.5-4.9); POTASSIUM 3.6 mmol/L (3.5-5.1); TOTAL PROTEIN, SERUM 7.4 g/dL (6.4-8.2)
[2020-12-01] MEDS ORDERED: PIPERACILLIN SODIUM/TAZOBACTAM 3.375 G in IV DEXTROSE 5% 50 ML IV SCH (08:00)
[2020-12-01] MEDS ORDERED: PIPERACILLIN SODIUM/TAZOBACTAM 3.37 G in IV DEXTROSE 5% 100 ML IV SCH (08:00)
[2020-12-01 08:28] LABS: THYROID STIMULATING HORMONE 1.765 mIU/mL (0.358-3.740)
[2020-12-01] MEDS ORDERED: VENLAFAXINE XR 150 MG CAP.SR.24H PO SCH (09:00)
[2020-12-01] MEDS ORDERED: MAGNESIUM SULFATE/D5W 100 ML IV SCH (09:15)
[2020-12-01] MEDS: GABAPENTIN 400 MG CAPSULE PO SCH ×2 (09:16→12:58)
[2020-12-01] MEDS ORDERED: LORAZEPAM 2 MG/1 ML VIAL IV ONE (10:30)
--- NOTE | 2020-12-01 12:12 | NUR ---
Cardiac Care Unit Nurse Notes: Reason for SS assessment is ETOH. Patient is a 35 year old female. Per patient's medical records, patient was brought in to the ED last night for binge drinking for the past 4 days, along with disruptive behavior such as breaking object in her home and falling. Per patient's medical records, patient states that it is the anniversary of her mother's and her stillborn child. Per medical records, and nursing report, patient has been agitated, yelling, and uncooperative. SW entered patient's room and attempted to meet with this patient. Patient presents lethargic and speech is mumbled and unclear. Per sitter, patient was given Ativan about 1-2 hours ago, and therefore has been sleepy. SW unable to complete assessment at this time, however SW will follow-up at a later time.
--- NOTE | 2020-12-01 14:33 | NUR ---
PATIENT LEAVING AMA. EXTENSIVE CONVERSATION WITH BLOW PIT OPERATOR AND RN REGARDING HER CONDITION AND THE IMPORTANCE OF HER GETTING TREATED. VERBALIZED UNDERSTANDING. PATIENT STILL INSIST LEAVING AGAINST MEDICAL ADVICE. IV REMOVED. NO S/S OF BLEEDING. ID BAND REMOVED. BELONGINGS RETURNED. BLOW PIT OPERATOR NOTIFIED ABOUT PATIENT WISH TO LEAVE.
[2020-12-01] MEDS ORDERED: NEUTRA PHOS PACKET PO ONE (14:45)
--- NOTE | 2020-12-01 14:48 | NUR ---
2:30pm: This SW followed-up with the patient. SW was informed by JERZY Escobar that patient has decided to go AMA. SW met with the patient, who was awake, sitting on her bed, trying to make a phone call in order to arrange a ride. SW attempted to assess patient's needs, and patient stood up, attempting to get dressed. Patient observed to have slightly unsteady gait. Patient then sat down on her bed, and stated in a loud voice "why are you asking me these questions!" SW explained to the patient that SW was trying to assess patient's needs for supportive resources. Patient then responded in a louder voice "I don't need your services!" SW ended the interview. SW informed JERZY Escobar of above.
== END 2020-12-01 14:45 | disposition left against medical advice (07) | DRG 894 ==
LOC: ER 21:34 → TELE-TD3 12-01 03:30 → TELE3 12-01 08:12
PROVIDERS: ADMIT Nurse Practitioner Acute Care; ATTEND Nurse Practitioner Acute Care
DX: F10.139 Alcohol abuse with withdrawal, unspecified (principal); J69.0 Pneumonitis due to inhalation of food and vomit; G92 Toxic encephalopathy; J15.6 Pneumonia due to other Gram-negative bacteria; E87.2 Acidosis; E87.1 Hypo-osmolality and hyponatremia; Y90.8 Blood alcohol level of 240 mg/100 ml or more; E03.9 Hypothyroidism, unspecified; S00.03XA Contusion of scalp, initial encounter; Z20.822 Contact with and (suspected) exposure to COVID-19; W18.30XA Fall on same level, unspecified, initial encounter; Y93.89 Activity, other specified; Y92.009 Unspecified place in unspecified non-institutional (private) residence as the place of occurrence of the external cause; S05.12XA Contusion of eyeball and orbital tissues, left eye, initial encounter; E86.0 Dehydration; F32.9 Major depressive disorder, single episode, unspecified; F41.9 Anxiety disorder, unspecified; E11.65 Type 2 diabetes mellitus with hyperglycemia; Z98.84 Bariatric surgery status
CPT/HCPCS: 36415; 36600; 70030-TC; 70450; 71045; 72125; 83605; 83735; 84100; 84443; 85025; 87040; 93005; A4663; G0378; G0480; J0456; J1630; J2060; J2543; J3411; J3415; J3475; J3480; J3490; J7040; J7042; J7060; J7070; J7120

== ENCOUNTER 2021-01-06 06:49 | Emergency (ER) | payer MEDICARE, OTHER ==
[~2021-01-06] VITALS: Ht 157.5 cm; Wt 104.3 kg
[~2021-01-06 06:49] MED LIST changes: +CLON-418 PO; +CLON1TAB PO; +HYDR50TA61 PO; -LISI-782 PO; -LORA-259 PO; +POTA-10 PO; -PROP80CA51 PO; +TRIH2TAB4 PO
[2021-01-06] MEDS ORDERED: IV NORMAL SALINE 1000 ML BAG IV ONE (07:15)
--- NOTE | 2021-01-06 07:15 | NUR ---
at bedside for assessment
[2021-01-06] MEDS ORDERED: CHLORDIAZEPOXIDE HCL 25 MG CAPSULE PO ONE (07:30)
[2021-01-06 07:41] LABS: BASOPHILS # (AUTO) 0.1 K/uL (0.0-8.0); BASOPHILS % (AUTO) 0.8 % (0.0-2.0); EOSINOPHILS # (AUTO) 0.1 K/uL (0.0-0.7); EOSINOPHILS % (AUTO) 0.6 % (0.0-7.0); HEMATOCRIT 38.1 % (31.2-41.9); HEMOGLOBIN 12.7 g/dL (10.9-14.3); LYMPHOCYTES % (AUTO) 18.1 % (20.5-51.5); MEAN CORPUSCULAR HEMOGLOBIN 26.6 uug (24.7-32.8); MEAN CORPUSCULAR HGB CONC 34 g/dL (32.3-35.6); MEAN CORPUSCULAR VOLUME 79.5 fL (75.5-95.3); MONOCYTES # (AUTO) 0.5 K/uL (2.0-10.0); MONOCYTES % (AUTO) 4.6 % (0.0-11.0); NEUTROPHILS # (AUTO) 8.6 K/uL (1.8-8.9); NEUTROPHILS % (AUTO) 75.9 % (38.5-71.5); PLATELET COUNT (AUTO) 420 K/uL (179-408); RED BLOOD CELL COUNT(AUTO) 4.79 MIL/uL (3.63-4.92); WHITE BLOOD COUNT (AUTO) 11.3 K/uL (3.8-11.8)
--- NOTE | 2021-01-06 07:44 | NUR ---
IV removed, patient wishes to leave AMA
--- NOTE | 2021-01-06 07:47 | NUR ---
Patient does not wish to proceed with medical care recommended by Dr. Combs. Patient given information related to possible complications, up to and including , which could occur as a result of leaving the hospital at this time. Patient verbalizes understanding of risks involved due to leaving against medical advice. Patient has signed AMA form.
[2021-01-06 07:48] LABS: CARBON DIOXIDE 28 mmol/L (21-32); CHLORIDE 100 mmol/L (98-107); CREATININE 0.7 mg/dL (0.6-1.3); GLUCOSE 177 mg/dL (74-106); UREA NITROGEN, BLOOD 8 mg/dL (7-18)
[2021-01-06 07:50] VITALS: BP 143/83
[2021-01-06 07:54] LABS: ALANINE AMINOTRANSFERASE 94 U/L (14-59); ALKALINE PHOSPHATASE 113 U/L (50-136); ASPARTATE AMINOTRANSFERASE 101 U/L (15-37); BILIRUBIN,DIRECT 0.1 mg/dL (0.0-0.2); BILIRUBIN,TOTAL 0.3 mg/dL (0.2-1.0); CREATINE KINASE, TOTAL 267 U/L (26-192); ETHANOL 127 MG/DL (0-0)
[2021-01-06 07:57] LABS: ACETAMINOPHEN < 2.0 ug/mL (10-30)
[2021-01-06 08:01] LABS: THYROID STIMULATING HORMONE 4.601 mIU/mL (0.358-3.740)
== END 2021-01-06 07:44 | disposition left against medical advice (07) ==
LOC: ER 06:50
DX: F10.229 Alcohol dependence with intoxication, unspecified (principal); Y90.6 Blood alcohol level of 120-199 mg/100 ml; R00.0 Tachycardia, unspecified; D47.3 Essential (hemorrhagic) thrombocythemia; R74.01 Elevation of levels of liver transaminase levels; E03.9 Hypothyroidism, unspecified; Z79.890 Hormone replacement therapy; Z98.84 Bariatric surgery status; F31.9 Bipolar disorder, unspecified; I10 Essential (primary) hypertension
CPT/HCPCS: 36415; 84443; 85025; 93005; A4663; G0480; J7030

== ENCOUNTER 2021-01-10 09:22 | Emergency (ER) | payer MEDICARE, OTHER ==
[~2021-01-10] VITALS: Ht 160 cm; Wt 95.3 kg
[2021-01-10] MEDS ORDERED: DIPHENOXYLATE HCL/ATROP SULF TABLET PO ONE (09:45)
[2021-01-10] MEDS ORDERED: LORAZEPAM 0.5 MG TABLET PO ONE (09:45)
[2021-01-10] MEDS ORDERED: ONDANSETRON ODT 4 MG TAB.RAPDIS SL ONE (09:45)
[2021-01-10] MEDS ORDERED: ONDANSETRON ODT 4 MG TAB.RAPDIS ONE (09:57)
[2021-01-10] MEDS ORDERED: DIPHENOXYLATE HCL/ATROP SULF TABLET ONE (09:57)
[2021-01-10] MEDS ORDERED: LORAZEPAM 1 MG TABLET ONE (09:58)
== END 2021-01-10 10:01 | disposition home or self-care (01) ==
LOC: ER 09:24
DX: F10.139 Alcohol abuse with withdrawal, unspecified (principal); F31.9 Bipolar disorder, unspecified; I10 Essential (primary) hypertension; E07.9 Disorder of thyroid, unspecified; Z79.890 Hormone replacement therapy; Z98.84 Bariatric surgery status; Z79.899 Other long term (current) drug therapy
CPT/HCPCS: A4663; Q0162

== ENCOUNTER 2021-01-18 00:32 | Emergency (ER) | payer MEDICAID, MEDICARE, OTHER ==
--- NOTE | 2021-01-18 00:38 | NUR ---
Patient was called to be triage. Patient unsure if she wants to be seen by ERMD. Patient is accompanied by boyfriend who states she has been drinking and "is drunk." Patient ambulatory with steady gait. A/Ox3. Patient wants a moment to decide if she wants to be seen.
--- NOTE | 2021-01-18 01:11 | NUR ---
Patient decided not to be seen. Patient walked out of ER waiting room with steady gait with her boyfriend. Patient was not seen by ERMD or Triaged.
[2021-01-18] MEDS ORDERED: LORA-258 PO (08:59)
[2021-01-19] MEDS ORDERED: LORA2VIA33 IJ (07:10)
== END 2021-01-18 01:12 | disposition left against medical advice (07) ==
LOC: ER 00:36
DX: Z53.21 Procedure and treatment not carried out due to patient leaving prior to being seen by health care provider (principal)

== ENCOUNTER 2021-01-18 08:22 | Emergency (ER) | payer MEDICARE, OTHER ==
[~2021-01-18] VITALS: Ht 157.5 cm; Wt 113.4 kg
--- NOTE | 2021-01-18 08:45 | NUR ---
Dr Dial at the bedside for MSE.
[2021-01-18] MEDS ORDERED: LORA-258 PO (08:59)
[2021-01-18] MEDS ORDERED: THIAMINE HCL 100 MG TABLET PO ONE (09:00)
[2021-01-18] MEDS ORDERED: FOLIC ACID/VITAMIN B COMP W-C TABLET PO SCH (09:00)
[2021-01-18] MEDS ORDERED: LORAZEPAM 0.5 MG TABLET PO ONE (09:00)
[2021-01-18] MEDS ORDERED: THIAMINE HCL 100 MG TABLET ONE (09:02)
[2021-01-18] MEDS ORDERED: LORAZEPAM 2 MG/1 ML VIAL ONE (09:03)
[2021-01-18 09:07] VITALS: BP 137/99
--- NOTE | 2021-01-18 09:07 | NUR ---
Patient discharged to home in stable condition. Written and verbal after care instructions given. Patient verbalizes understanding of instructions. Stressed follow up or return to ER for worsening s/s. Pt left ER w/ steady gait accompained by friend/roommate.
[2021-01-19] MEDS ORDERED: LORA2VIA33 IJ (07:10)
== END 2021-01-18 09:08 | disposition home or self-care (01) ==
LOC: ER 08:22
DX: F10.20 Alcohol dependence, uncomplicated (principal); F13.10 Sedative, hypnotic or anxiolytic abuse, uncomplicated; Y90.9 Presence of alcohol in blood, level not specified; Z98.84 Bariatric surgery status; E07.9 Disorder of thyroid, unspecified; Z79.890 Hormone replacement therapy; Z79.899 Other long term (current) drug therapy; E66.01 Morbid (severe) obesity due to excess calories; Z68.42 Body mass index [BMI] 45.0-49.9, adult; I10 Essential (primary) hypertension; Z90.5 Acquired absence of kidney; F31.9 Bipolar disorder, unspecified
CPT/HCPCS: 96372; 99283; J2060; A4663

== ENCOUNTER 2021-01-19 06:32 | Emergency (ER) | payer MEDICARE, OTHER ==
[~2021-01-19] VITALS: Ht 157.5 cm; Wt 104.3 kg
[~2021-01-19 06:32] MED LIST changes: +LORA-258 PO
[2021-01-19] MEDS ORDERED: LORA2VIA33 IJ (07:10)
[2021-01-19] MEDS ORDERED: LORAZEPAM 0.5 MG TABLET PO ONE (07:15)
--- NOTE | 2021-01-19 07:16 | NUR ---
Patient discharged to home in stable condition. Instructed not to drive, able to ambulate with steady gait, no signs sof aacute distress noted. Written and verbal after care instructions given. Patient verbalizes understanding of instructions. Stressed follow up or return to ER for worsening s/s.
[2021-01-19 07:17] VITALS: BP 138/97
[2021-01-19] MEDS ORDERED: LORAZEPAM 1 MG TABLET ONE (07:18)
== END 2021-01-19 07:19 | disposition home or self-care (01) ==
LOC: ER 06:41
DX: F10.239 Alcohol dependence with withdrawal, unspecified (principal); F31.9 Bipolar disorder, unspecified; I10 Essential (primary) hypertension; E07.9 Disorder of thyroid, unspecified; Z98.84 Bariatric surgery status; Z88.6 Allergy status to analgesic agent; Z88.5 Allergy status to narcotic agent; Z79.890 Hormone replacement therapy; Z79.899 Other long term (current) drug therapy
CPT/HCPCS: A4663

== ENCOUNTER 2021-02-09 23:51 | Emergency (ER) | payer MEDICARE, OTHER | END 2021-02-09 23:58 | disposition left against medical advice (07) | LOC: ER 23:51 | DX: Z53.21 Procedure and treatment not carried out due to patient leaving prior to being seen by health care provider (principal) ==

== ENCOUNTER 2021-02-10 01:03 | Emergency (ER) | payer MEDICARE, OTHER ==
[~2021-02-10] VITALS: Ht 167.6 cm; Wt 104.3 kg
--- NOTE | 2021-02-10 01:25 | NUR ---
Patient complaining of sudden onset of nosebleed, patient instructed to pinch bridge of her nose, lean forward, and given gauze for any blood leaking. Patient uncooperative. Administered nose tongs to assist with nose bleed. MD Jose Eddy made aware.
--- NOTE | 2021-02-10 01:37 | NUR ---
Nosebleed stopped after intervention.
--- NOTE | 2021-02-10 01:38 | NUR ---
Patient continously threatens to leave AMA. Demands to see the doctor immediately and does not patiently wait.
--- NOTE | 2021-02-10 01:39 | NUR ---
MD Jose Eddy in room to do MSE.
[2021-02-10 01:45] VITALS: BP 135/94
--- NOTE | 2021-02-10 01:45 | NUR ---
Patient discharged to home in stable condition. Written and verbal after care instructions given. Patient verbalizes understanding of instructions. Stressed follow up or return to ER for worsening s/s. Patient ambulates with steady gait, V/S stable, left with all personal belongings.
== END 2021-02-10 01:45 | disposition home or self-care (01) ==
LOC: ER 01:03
DX: J04.0 Acute laryngitis (principal); I10 Essential (primary) hypertension; G89.4 Chronic pain syndrome; F31.9 Bipolar disorder, unspecified; Z86.69 Personal history of other diseases of the nervous system and sense organs; E07.9 Disorder of thyroid, unspecified; Z79.899 Other long term (current) drug therapy; Z88.6 Allergy status to analgesic agent; Z98.84 Bariatric surgery status
CPT/HCPCS: A4663

== ENCOUNTER 2021-02-10 07:16 | Emergency (ER) | payer MEDICARE, OTHER ==
[~2021-02-10] VITALS: Ht 157.5 cm; Wt 104.3 kg
[2021-02-10] MEDS ORDERED: MAGNESIUM SULFATE/D5W 100 ML IV SCH (07:45)
[2021-02-10] MEDS ORDERED: FOLIC ACID 5 MG/ML VIAL IV ONE (07:45)
[2021-02-10] MEDS ORDERED: THIAMINE HCL 200 MG/2 ML VIAL IV ONE (07:45)
--- NOTE | 2021-02-10 08:00 | NUR ---
Pt arrived ambulatory with intermittently unstable gait. AOx4, hoarse voice and mumbling at times but otherwise clear speech. unkempt, noted to have multiple adhesive residue on chest and both arms. able to follow simple commands with ease, able to change into hospital gown independently. Pt states she had her usual 6 bottles of IPA this morning and took multiple medications with it. Pt asking for Librium and Ativan. pt states: " can I stay here until I withdraw? And can I get librium?" Pt reoriented to plan of care. Pt connected to monitor and placed on fall prec asp prec srx2 bed at lowest position. ERMD at bedside for hx and physical
[2021-02-10 08:05] LABS: BASOPHILS # (AUTO) 0.1 K/uL (0.0-8.0); BASOPHILS % (AUTO) 0.4 % (0.0-2.0); HEMATOCRIT 34.1 % (31.2-41.9); HEMOGLOBIN 11.3 g/dL (10.9-14.3); LYMPHOCYTES # (AUTO) 2.1 K/uL (20.0-40.0); LYMPHOCYTES % (AUTO) 15.4 % (20.5-51.5); MEAN CORPUSCULAR HEMOGLOBIN 25.9 uug (24.7-32.8); MEAN CORPUSCULAR HGB CONC 33 g/dL (32.3-35.6); MEAN CORPUSCULAR VOLUME 78.5 fL (75.5-95.3); MONOCYTES # (AUTO) 0.9 K/uL (2.0-10.0); MONOCYTES % (AUTO) 6.5 % (0.0-11.0); NEUTROPHILS # (AUTO) 10.4 K/uL (1.8-8.9); NEUTROPHILS % (AUTO) 77.7 % (38.5-71.5); PLATELET COUNT (AUTO) 334 K/uL (179-408); RED BLOOD CELL COUNT(AUTO) 4.34 MIL/uL (3.63-4.92); WHITE BLOOD COUNT (AUTO) 13.4 K/uL (3.8-11.8)
[2021-02-10 08:09] LABS: CREATININE 0.7 mg/dL (0.6-1.3); POTASSIUM 2.9 mmol/L (3.5-5.1)
[2021-02-10 08:15] LABS: BILIRUBIN,DIRECT 0.3 mg/dL (0.0-0.2); BILIRUBIN,TOTAL 0.8 mg/dL (0.2-1.0); TOTAL PROTEIN, SERUM 7.4 g/dL (6.4-8.2)
[2021-02-10] MEDS ORDERED: FOLIC ACID IV ONE ×2 (08:15→08:30)
[2021-02-10] MEDS ORDERED: THIAMINE HCL IV ONE ×3 (08:15→08:30)
[2021-02-10] MEDS ORDERED: MAGNESIUM SULFATE IV ONE ×3 (08:15→08:30)
[2021-02-10] MEDS ORDERED: [UNRECOGNIZED DRUG - OTHER] IV ONE (08:15)
[2021-02-10] MEDS ORDERED: [UNRECOGNIZED DRUG - OTHER] IV ONE (08:30)
[2021-02-10] MEDS ORDERED: [UNRECOGNIZED DRUG - OTHER] IV ONE (08:30)
[2021-02-10] MEDS ORDERED: MVI ADULT IV ONE (08:30)
[2021-02-10] MEDS: POTASSIUM CHLORIDE 50 ML IV SCH ×2 (09:00→09:20)
[2021-02-10] MEDS ORDERED: POTASSIUM CHLORIDE 20 MEQ TAB.PRT.SR PO ONE (09:00)
[2021-02-10] MEDS ORDERED: POTASSIUM CHLORIDE 20 MEQ TAB.PRT.SR ONE (09:11)
[2021-02-10] MEDS ORDERED: POTASSIUM CHLORIDE 10 MEQ TAB.PRT.SR ONE (09:11)
--- NOTE | 2021-02-10 09:12 | NUR ---
Patient does not wish to proceed with medical care recommended by Dr. Combs. Pt declined to continue IVF and all IV meds. Pt requested PO Potassium instead. Patient given information related to possible complications, up to and including , which could occur as a result of leaving the hospital at this time. Patient verbalizes understanding of risks involved due to leaving against medical advice. Patient has signed AMA form.
[2021-02-10 09:18] LABS: *BILIRUBIN,URIN NEGATIVE (NEGATIVE); *CLARITY,URINE CLEAR (CLEAR); *COLOR,URINE YELLOW (YELLOW); *KETONES,URINE NEGATIVE (NEGATIVE); *UROBILINOGEN,URINE 0.2 E.U./dl (NORMAL); LEUKOCYTE ESTERASE ,URINE NEGATIVE (NEGATIVE); NITRITE, URINE NEGATIVE (NEGATIVE); UGLUCOSE NEGATIVE (NEGATIVE)
[2021-02-10 09:21] VITALS: BP 148/89
[2021-02-10 09:36] LABS: *AMPHETAMINE, URINE NEGATIVE (NEGATIVE); *CANNABINOID, URINE NEGATIVE (NEGATIVE); *COCCAINE, URINE NEGATIVE (NEGATIVE); *OPIATE, URINE NEGATIVE (NEGATIVE); *PHENCYCLIDINE SCREEN,URINE NEGATIVE (NEGATIVE)
[2021-02-10 09:38] LABS: CREATINE KINASE, TOTAL 7297 U/L (26-192)
[2021-02-10 09:39] LABS: *BLOOD, URINE NEGATIVE (NEGATIVE)
== END 2021-02-10 09:10 | disposition left against medical advice (07) ==
LOC: ER 07:16
DX: E87.6 Hypokalemia (principal); F10.20 Alcohol dependence, uncomplicated; R94.31 Abnormal electrocardiogram [ECG] [EKG]; R05 Cough; Z20.822 Contact with and (suspected) exposure to COVID-19; J02.9 Acute pharyngitis, unspecified; G89.4 Chronic pain syndrome; I10 Essential (primary) hypertension; F31.9 Bipolar disorder, unspecified; Z98.84 Bariatric surgery status; E07.9 Disorder of thyroid, unspecified; Z79.890 Hormone replacement therapy
CPT/HCPCS: 96365; 99285; J3411; J3475; J3490; 36415; 71045; 85025; 93005; A4663; C1758; J7030

== ENCOUNTER 2021-02-11 06:00 | Inpatient (IN) | payer MEDICARE, OTHER ==
[~2021-02-11] VITALS: Ht 157.5 cm; Wt 104.3 kg
[2021-02-11] MEDS ORDERED: IV NORMAL SALINE 1000 ML BAG IV ONE ×2 (06:30)
[2021-02-11 06:35] LABS: BASOPHILS % (AUTO) 0.3 % (0.0-2.0); HEMATOCRIT 30.9 % (31.2-41.9); HEMOGLOBIN 10.5 g/dL (10.9-14.3); LYMPHOCYTES # (AUTO) 1.9 K/uL (20.0-40.0); LYMPHOCYTES % (AUTO) 12.3 % (20.5-51.5); MEAN CORPUSCULAR HEMOGLOBIN 26.4 uug (24.7-32.8); MEAN CORPUSCULAR HGB CONC 34 g/dL (32.3-35.6); MEAN CORPUSCULAR VOLUME 77.7 fL (75.5-95.3); MONOCYTES # (AUTO) 0.8 K/uL (2.0-10.0); MONOCYTES % (AUTO) 5.4 % (0.0-11.0); NEUTROPHILS # (AUTO) 12.5 K/uL (1.8-8.9); PLATELET COUNT (AUTO) 319 K/uL (179-408); RED BLOOD CELL COUNT(AUTO) 3.97 MIL/uL (3.63-4.92); WHITE BLOOD COUNT (AUTO) 15.3 K/uL (3.8-11.8)
--- NOTE | 2021-02-11 06:37 | NUR ---
Pt off to CT at this time.
[2021-02-11 06:52] LABS: ETHANOL < 3 MG/DL (0-0)
[2021-02-11 06:56] LABS: CARBON DIOXIDE 25 mmol/L (21-32); CHLORIDE 100 mmol/L (98-107); CREATININE 1.1 mg/dL (0.6-1.3); GLUCOSE 169 mg/dL (74-106); POTASSIUM 3.6 mmol/L (3.5-5.1); UREA NITROGEN, BLOOD 6 mg/dL (7-18)
[2021-02-11 07:02] LABS: ALANINE AMINOTRANSFERASE 87 U/L (14-59); ALKALINE PHOSPHATASE 122 U/L (50-136); ASPARTATE AMINOTRANSFERASE 251 U/L (15-37); BILIRUBIN,DIRECT 0.4 mg/dL (0.0-0.2); BILIRUBIN,TOTAL 0.9 mg/dL (0.2-1.0)
--- NOTE | 2021-02-11 07:09 | NUR ---
Pt has repeatedly attempted to interrupt physician during dictating. Instructed to call security by physician because pt keeps coming to nursing station. Security present here now. REport given to dayshift nurse.
[2021-02-11 07:15] LABS: ACETAMINOPHEN < 2.0 ug/mL (10-30)
--- NOTE | 2021-02-11 07:20 | NUR ---
NOTICED MULTIPLE BRUISES ON THE PT'S FACE AND BUE. PT SAYS THAT SHE HAS FALLEN. DENEIS ANY ASSAULT/ABUSIVE RELATIONSHIP. PT REFUSES PSYCHOTHERAPIST TO BE INVOLVED.
[2021-02-11 07:33] LABS: *BILIRUBIN,URIN NEGATIVE (NEGATIVE); *CLARITY,URINE CLEAR (CLEAR); *COLOR,URINE YELLOW (YELLOW); *KETONES,URINE NEGATIVE (NEGATIVE); *UROBILINOGEN,URINE 0.2 E.U./dl (NORMAL); LEUKOCYTE ESTERASE ,URINE NEGATIVE (NEGATIVE); NITRITE, URINE NEGATIVE (NEGATIVE); PH,URINE 6.5 (5.0-8.0); UGLUCOSE NEGATIVE (NEGATIVE)
[2021-02-11 07:43] LABS: *AMPHETAMINE, URINE NEGATIVE (NEGATIVE); *CANNABINOID, URINE NEGATIVE (NEGATIVE); *COCCAINE, URINE NEGATIVE (NEGATIVE); *OPIATE, URINE NEGATIVE (NEGATIVE); *PHENCYCLIDINE SCREEN,URINE NEGATIVE (NEGATIVE)
[2021-02-11] MEDS ORDERED: CHLORDIAZEPOXIDE HCL 25 MG CAPSULE ONE (07:44)
[2021-02-11] MEDS ORDERED: IV NS 1000 ML 1,000 ML IV ONE (07:45)
[2021-02-11] MEDS ORDERED: CHLORDIAZEPOXIDE HCL 25 MG CAPSULE PO ONE (07:45)
--- NOTE | 2021-02-11 07:53 | NUR ---
PT AMBUALTED TO BATHROOM.
[2021-02-11] MEDS ORDERED: CLONIDINE HCL 0.1 MG TABLET PO PRN (08:00)
[2021-02-11] MEDS ORDERED: MAGNESIUM HYDROXIDE 30 ML LIQUID UDC PO PRN (08:00)
[2021-02-11] MEDS ORDERED: ACETAMINOPHEN 325 MG TABLET PO PRN (08:00)
[2021-02-11] MEDS ORDERED: ONDANSETRON 4 MG/2 ML VIAL IV PRN (08:00)
[2021-02-11] MEDS ORDERED: HYDROCODONE/APAP 5-325MG TABLET PO PRN (08:00)
[2021-02-11] MEDS ORDERED: CHLORDIAZEPOXIDE HCL 25 MG CAPSULE PO PRN (08:00)
[2021-02-11] MEDS ORDERED: hydrOXYzine HCL 25 MG TABLET PO PRN (08:00)
[2021-02-11] MEDS ORDERED: Z GUARD REMEDY PASTE 57 GM TUBE TOP PRN (08:00)
[2021-02-11 08:23] LABS: *BLOOD, URINE NEGATIVE (NEGATIVE)
[2021-02-11 08:24] LABS: *URINE HCG, QUAL NEGATIVE (NEGATIVE)
[2021-02-11] MEDS ORDERED: CLONAZEPAM 1 MG TABLET PO SCH (09:00)
[2021-02-11] MEDS ORDERED: LEVOTHYROXINE SODIUM 75 MCG TABLET PO SCH (09:00)
--- NOTE | 2021-02-11 09:12 | NUR ---
PT RESTING COMFORTABLY, PT SAYS THAT FEELS BETTER.
--- NOTE | 2021-02-11 10:07 | NUR ---
PT TRANSFERED TO FLOOR IN STABLE CONDITION.
[2021-02-11 10:15] VITALS: BP 148/92
[2021-02-11] MEDS: PANTOPRAZOLE SODIUM 40 MG VIAL IV SCH (10:20)
[2021-02-11] MEDS: GABAPENTIN 400 MG CAPSULE PO SCH ×3 (10:20→17:22)
[2021-02-11] MEDS ORDERED: HYDROCHLOROTHIAZIDE 25 MG TABLET PO SCH (10:20)
--- NOTE | 2021-02-11 10:20 | NUR ---
Received patient from ED. Alert and oriented x 4. On room air. No signs of acute distress. With R FA #20 IV access. Vital signs taken and WNL. Oriented to unit and room. Call light within reach. Will continue to monitor.
[2021-02-11] MEDS: VENLAFAXINE XR 150 MG CAP.SR.24H PO SCH (10:30)
[2021-02-11] MEDS: IV NS 1000 ML 1,000 ML IV PRN ×2 (10:48→22:44)
[2021-02-11] MEDS: BENZOCAINE/MENTH/CETYLPYRD LOZENGE MM PRN ×3 (13:42→22:38)
[2021-02-11 16:01] VITALS: BP 132/74
[2021-02-11] MEDS: LORAZEPAM 2 MG/1 ML VIAL IV PRN ×2 (16:15→22:38)
[2021-02-11] MEDS ORDERED: LURASIDONE HCL PO SCH (18:00)
[2021-02-11] MEDS: CHLORDIAZEPOXIDE HCL 25 MG CAPSULE PO PRN (18:49)
--- NOTE | 2021-02-11 19:36 | NUR ---
Patient made multiple demands during shift. Complained of diarrhea x3 and sore throat. Kekatharine, COMPENSATOR WORKER contacted and orders given. Patient would go to the nursing station asking for medication. Redirected patient and informed her to use call light if help is needed.
[2021-02-11 20:21] VITALS: BP 144/96
[2021-02-11] MEDS: ACIDOPHILUS/BULGARICUS CHEW TAB PO SCH (20:30)
[2021-02-11] MEDS: TRIHEXYPHENIDYL HCL 2 MG TABLET PO SCH (20:30)
[2021-02-11] MEDS: CLONAZEPAM 1 MG TABLET PO SCH (20:31)
--- NOTE | 2021-02-11 23:36 | NUR ---
Received patient in room standing at the door. No s/s of acute distress noted at this time. On RA denies SOB. Tele monitor in place. Patient very demanding walking up to the nurses station and calling repeatedly for Ativan and snacks. Advised patient on medication schedule. Right FA IV patent and intact. Safety measures in place.
[2021-02-12 00:15] VITALS: BP 123/73
[2021-02-12] MEDS: BENZOCAINE/MENTH/CETYLPYRD LOZENGE MM PRN ×3 (01:48→17:06)
[2021-02-12] MEDS: LORAZEPAM 2 MG/1 ML VIAL IV PRN ×5 (02:37→23:29)
[2021-02-12 04:21] VITALS: BP 148/88
[2021-02-12] MEDS: CHLORDIAZEPOXIDE HCL 25 MG CAPSULE PO PRN (05:32)
--- NOTE | 2021-02-12 06:01 | NUR ---
Patient in room. No s/s of acute distress noted at this time. on RA denies SOB. personal investment adviser in place. Patient is very needy and intrusive. Walking around the unit and seeking out this mortgage underwriter in another patients room demanding this mortgage underwriter to disrupt patient care and attend to her needs. Advised the patient to return to room and to be mindful of the other patients. Safety measures in place, will endorse to oncoming nurse.
[2021-02-12 06:30] LABS: BASOPHILS % (AUTO) 0.2 % (0.0-2.0); EOSINOPHILS % (AUTO) 0.4 % (0.0-7.0); HEMATOCRIT 30.6 % (31.2-41.9); LYMPHOCYTES # (AUTO) 2.5 K/uL (20.0-40.0); LYMPHOCYTES % (AUTO) 21.7 % (20.5-51.5); MEAN CORPUSCULAR HEMOGLOBIN 25.8 uug (24.7-32.8); MEAN CORPUSCULAR HGB CONC 33 g/dL (32.3-35.6); MEAN CORPUSCULAR VOLUME 79.1 fL (75.5-95.3); MONOCYTES # (AUTO) 0.6 K/uL (2.0-10.0); MONOCYTES % (AUTO) 5.6 % (0.0-11.0); NEUTROPHILS # (AUTO) 8.2 K/uL (1.8-8.9); NEUTROPHILS % (AUTO) 72.1 % (38.5-71.5); PLATELET COUNT (AUTO) 293 K/uL (179-408); RED BLOOD CELL COUNT(AUTO) 3.87 MIL/uL (3.63-4.92); WHITE BLOOD COUNT (AUTO) 11.3 K/uL (3.8-11.8)
[2021-02-12] MEDS ORDERED: LEVOTHYROXINE SODIUM 75 MCG TABLET PO SCH ×2 (07:00→07:49)
[2021-02-12 07:04] LABS: THYROID STIMULATING HORMONE 7.792 mIU/mL (0.358-3.740)
[2021-02-12 07:13] LABS: CREATININE 0.8 mg/dL (0.6-1.3); POTASSIUM 2.9 mmol/L (3.5-5.1)
[2021-02-12] MEDS: CLONAZEPAM 1 MG TABLET PO SCH ×2 (08:51→20:52)
[2021-02-12] MEDS: PANTOPRAZOLE SODIUM 40 MG VIAL IV SCH (08:51)
[2021-02-12] MEDS: GABAPENTIN 400 MG CAPSULE PO SCH ×3 (08:52→17:07)
[2021-02-12] MEDS: ACIDOPHILUS/BULGARICUS CHEW TAB PO SCH ×2 (08:53→20:52)
[2021-02-12] MEDS: VENLAFAXINE XR 150 MG CAP.SR.24H PO SCH (08:54)
[2021-02-12] MEDS ORDERED: POTASSIUM CHLORIDE 20 MEQ TAB.PRT.SR PO ONE ×2 (09:00→13:00)
--- NOTE | 2021-02-12 10:36 | NUR ---
patient is alert, oriented x4, verbally responsive, no sob, resp even nonlabored, skin warm and dry to touch, patient is ambulatory with steady gait, Patient is very needy and intrusive. Walking around the unit and seeking out this fiction writer in another patients room demanding this fiction writer to disrupt patient care and attend to her needs. constantly pacing back and forth around the unit seeking frequent medications. difficult to redirect, WERNER Mata is aware, continue to monitor
[2021-02-12] MEDS: IV NS 1000 ML 1,000 ML IV PRN (11:04)
[2021-02-12 12:00] VITALS: BP 157/95
[2021-02-12] MEDS ORDERED: LORAZEPAM 2 MG/1 ML VIAL IM ONE (12:00)
--- NOTE | 2021-02-12 12:03 | NUR ---
patient is alert oriented x4, pacing back and forth to the nursing station, seeking for meds, spoke to WERNER Mata, received order for Ativan IM, ativan 2mg was given to earlier at 1021. however got leaked out, because IV site noted infiltrated. Addendum: 02/12/21 at 1403 by MARIOLA MENDEZ RN, RN pharmacist on duty made aware as well Addendum: 02/12/21 at 1543 by MARIOLA MENDEZ RN, RN IV line noted with leakage, however able to reinforce and flush without resistant. will continue to monitor Addendum: 02/14/21 at 09 by MARIOLA MENDEZ RN, RN patient stated " i do not you to be my nurse, i do not like you I am going to give to hard time to get attention and I am going to pull my IV access" Addendum: 02/14/21 at 09 by MARIOLA MENDEZ RN, RN correction: patient stated " i do not want you (this advertising copy writer) to be my nurse, I am going to give to hard time" this advertising copy writer tried to reassure patient that this advertising copy writer is here to help you, this advertising copy writer was with patient since morning 0700am to meet patient frequent needs, since patient constantly called to the nursing station and to the walking back and forth to the nursing station for multiple times, even though the nurses just attended her needs Addendum: 02/14/21 at 0929 by MARIOLA MENDEZ RN, RN patient is very difficult to redirect, charge nurse on duty is aware and assisted with patient needs as well. Addendum: 02/14/21 at 0941 by MARIOLA MENDEZ RN, RN however no redness noted at IV site at this time, able to reinforce and flush, continue to monitor, patent keep rolling the IV tubing around her and pulls onto the tubing, explained to patient it can get dislodged. patient stated she does not care if it gets dislodged. continue to reassure.
--- NOTE | 2021-02-12 12:26 | NUR ---
Ativan IM administered with witness of another nurse on duty, noon meds administered as scheduled, with witness of another nurse, report given to nurse Felicia BERTRAND Addendum: 02/12/21 at 1533 by MARIOLA MENDEZ RN, RN patient visited nursing station multiple times for different stuff in the morning, such as patient visited nursing station to see doctor, even though WERNER pham just was in her room to examine her, second time patient visited nursing station saying that she would like to go home, explained patient risks and benefits, patient verbalized understanding of it, however WERNER Pham talked to patient and patient agreed to stay, patient came to nursing station again said her IV hydration bag is low on fluids, even this typewriters functional tester just was with patient in her room and told patient that this typewriters functional tester will be back with new bag of IV hydration, new bag started, IV line was flushed and no resistant noted upon flushing, no signs and symptoms of infiltration noted at that time, patient noted pulling her IV line multiple times during transferring herself from bed to chair and to coming out of room, reminded patient multiple times that IV Line will be dislodged if not careful. patient is very anxious and restless, stayed with patient , and frequent every 15 minute rounds made to patient, morning medications were given to patient on time.
--- NOTE | 2021-02-12 15:36 | NUR ---
IV line was flushed before giving morning Meds, before administering Protonix, no resistant noted, no signs and symptoms of infiltration noted.
[2021-02-12 16:00] VITALS: BP 152/94
--- NOTE | 2021-02-12 17:02 | NUR ---
Social Service consultation: Paradi Operator consultation requested for substance abuse. Patient is a 35 year old female who presented to the ED on 02/11 seconday to anxiety and ETOH withdrawal. Patient is known to this social professionals from previous hospital admissions. This AR MANAGER met with the patient in her hospital room. Patient is alert, awake, oriented, receptive to meeting with this AR MANAGER. Patient lives at home with her boyfriend, Hugo, who patient stated is her emergency contact, . Patient states she is ambulatory and independent with her ADL's. Patient reports a long history of alcohol use, spanning over 7 years, however stated going on a drinking binge over the last 2 weeks, drinking a 12 pack of beer on a daily basis. Patient also reported drinking 2 pints of vodka over the past 2 days. Patient denied use of drugs or cigarettes. Patient reported being diagnosed with Bipolar Disorder, Anxiety, and Depression. Patient reported 1 suicidal attempt back in 2007, when she tried to overdose on 7 bottles of pills. Patient reported no SI after that one attempt, and no current SI and HI. This AR MANAGER explored patient's psychosocial needs, and patient requested information on substance abuse treatment programs. Discharge plans also discussed, and patient stated that she will be returning home after this hospitalization, and would then look into the possibility of going into a detox program. PLAN: This AR MANAGER to provide patient with resources on substance abuse treatment programs.
--- NOTE | 2021-02-12 19:30 | NUR ---
Received patient lying in bed. Asleep but easily arouse to verbal stimuli. AOx4. Calm and pleasant at this time. In no acute distress. Denies any pain or SOB. 1:1 sitter on site. IV site on left wrist intact and patent. Sinus tachy on tele at 108/min. Needs assessed and attended to. Safety measure initiated. Continue to monitor.
[2021-02-12 20:00] VITALS: BP 150/95
[2021-02-12] MEDS: TRIHEXYPHENIDYL HCL 2 MG TABLET PO SCH (20:52)
--- NOTE | 2021-02-12 23:05 | NUR ---
Patient very anxious/restless, keeps in asking for her Lorazepam. Informed patient that Lorazepam is ordered for every [address] Oliveros and change order to Lorazepam 2mg every 4 hours PRN. Order verified and will carry out.
[2021-02-13 00:10] VITALS: BP 153/97
[2021-02-13] MEDS: BENZOCAINE/MENTH/CETYLPYRD LOZENGE MM PRN ×3 (00:20→12:45)
[2021-02-13] MEDS: LORAZEPAM 2 MG/1 ML VIAL IV PRN ×5 (04:27→21:39)
[2021-02-13 04:38] VITALS: BP 149/89
[2021-02-13] MEDS: PANTOPRAZOLE SODIUM 40 MG TABLET.DR PO SCH (06:04)
--- NOTE | 2021-02-13 06:17 | NUR ---
AAOx4. Lorazepam 2mg vie IV given every 4 hours PRN for severe anxiety. Pt with sporadic non-productive cough. Cepacol lozenges provided every 2 hours PRN for sore throat and effective. 1:1 sitter on site. IV site on left wrist intact and patent. NSR on tele at 98/min at this time. Needs attended to and met. Safety measure maintained.
[2021-02-13 07:17] LABS: CREATININE 0.7 mg/dL (0.6-1.3)
--- NOTE | 2021-02-13 07:30 | NUR ---
Received patient in bed, awake and oriented times 3-4. No sign of distress noted. Patient is on room air. Pt has a 1:1 sitter. Safety measures are in place. Will continue to monitor.
[2021-02-13 07:44] LABS: POTASSIUM 2.6 mmol/L (3.5-5.1)
[2021-02-13 08:00] VITALS: BP 128/63
--- NOTE | 2021-02-13 08:06 | NUR ---
Received critical lab values for potassium from lab at 0744. FIELD ARTILLERY FIRE CONTROL MAN contacted. Order given for 6 bags of potassium with lidocaine times [address] order and continue to monitor.
[2021-02-13] MEDS: ACIDOPHILUS/BULGARICUS CHEW TAB PO SCH ×2 (08:35→20:36)
[2021-02-13] MEDS: VENLAFAXINE XR 150 MG CAP.SR.24H PO SCH (08:35)
[2021-02-13] MEDS: CLONAZEPAM 1 MG TABLET PO SCH ×2 (08:35→20:36)
[2021-02-13] MEDS: GABAPENTIN 400 MG CAPSULE PO SCH ×3 (08:35→17:18)
[2021-02-13 08:36] LABS: BASOPHILS % (AUTO) 0.2 % (0.0-2.0); EOSINOPHILS # (AUTO) 0.2 K/uL (0.0-0.7); HEMATOCRIT 30.1 % (31.2-41.9); HEMOGLOBIN 9.8 g/dL (10.9-14.3); LYMPHOCYTES # (AUTO) 1.6 K/uL (20.0-40.0); LYMPHOCYTES % (AUTO) 17.1 % (20.5-51.5); MEAN CORPUSCULAR HGB CONC 33 g/dL (32.3-35.6); MONOCYTES # (AUTO) 0.4 K/uL (2.0-10.0); MONOCYTES % (AUTO) 4.5 % (0.0-11.0); NEUTROPHILS # (AUTO) 7.1 K/uL (1.8-8.9); NEUTROPHILS % (AUTO) 76.2 % (38.5-71.5); PLATELET COUNT (AUTO) 274 K/uL (179-408); RED BLOOD CELL COUNT(AUTO) 3.76 MIL/uL (3.63-4.92); WHITE BLOOD COUNT (AUTO) 9.3 K/uL (3.8-11.8)
[2021-02-13] MEDS: POTASSIUM CHLORIDE 10 MEQ, LIDOCAINE-MPF 1% 1 ML in IV DEXTROSE 5% 100 ML IV SCH ×6 (09:31→14:53)
--- NOTE | 2021-02-13 10:44 | NUR ---
This PALLIATIVE CARE COORDINATOR met with the patient today, and provided her with the following community resources. Copy of the resources were also filed in patient's chart. [facility] at [address] [address]. [facility] [address] [facility] [place] [address] [place], [place] [address] [facility] [phone] [facility] [id number] [place] [id number] Admissions: [phone] [facility] [address] [place] [address]
[2021-02-13 12:00] VITALS: BP 142/75
[2021-02-13] MEDS ORDERED: LEVO88TA2 PO (13:50)
[2021-02-13] MEDS: LEVOTHYROXINE SODIUM 88 MCG TABLET PO SCH (15:14)
[2021-02-13 16:00] VITALS: BP 151/77
[2021-02-13] MEDS: POTASSIUM CHLORIDE 20 MEQ in IV NS 1000 ML 1,000 ML IV PRN (16:40)
[2021-02-13] MEDS ORDERED: DIPH50CA38 PO (16:52)
[2021-02-13] MEDS ORDERED: CARV6.25 PO (16:53)
--- NOTE | 2021-02-13 18:18 | NUR ---
Patient left in bed in stable condition. No sign of distress noted. Gave medications as ordered. Patient still has a 1:[address] Safety measures implemented. Will continue to monitor.
[2021-02-13] MEDS ORDERED: GABAPENTIN 400 MG CAPSULE PO PRN (19:15)
[2021-02-13 20:05] VITALS: BP_SYST 111; BP_DIAS 26; BP_DIAS 86
[2021-02-13] MEDS: TRIHEXYPHENIDYL HCL 2 MG TABLET PO SCH (20:36)
[2021-02-13] MEDS: diphenhydrAMINE 50 MG CAPSULE PO SCH (20:36)
[2021-02-13] MEDS: CARVEDILOL 6.25 MG TABLET PO SCH (20:37)
[2021-02-14] VITALS (7 sets, daily range): BP systolic 105–146; BP diastolic 47–97
[2021-02-14] MEDS: LORAZEPAM 2 MG/1 ML VIAL IV PRN ×6 (01:39→23:54)
[2021-02-14] MEDS: BENZOCAINE/MENTH/CETYLPYRD LOZENGE MM PRN ×3 (01:51→19:51)
--- NOTE | 2021-02-14 05:40 | NUR ---
Pt slept throughout the night. Denies pain or SOB. Expresses that she wants to quit drinking alcohol and is really trying this time to quit. Patient calm and not agitated this shift. Had one episode of urinating in the bed, otherwise no discomfort noted. Requests IV Ativan Q4H. IV site intact and patent. Safety and comfort provided. 1:1 at bedside. No other issues or concerns at this time, will endorse to day shift.
[2021-02-14] MEDS: LEVOTHYROXINE SODIUM 88 MCG TABLET PO SCH (06:09)
[2021-02-14] MEDS: PANTOPRAZOLE SODIUM 40 MG TABLET.DR PO SCH (06:09)
--- NOTE | 2021-02-14 07:30 | NUR ---
Received patient in bed, awake and oriented times 3-4. No sign of distress noted. Pt IV is patent and intact running IV fluids. Patient is on room air. Pt has a 1:1 sitter. Safety measures are in place. Will continue to monitor
[2021-02-14 07:40] LABS: CREATININE 0.8 mg/dL (0.6-1.3); POTASSIUM 3.1 mmol/L (3.5-5.1)
[2021-02-14] MEDS: CLONAZEPAM 1 MG TABLET PO SCH ×2 (09:10→20:43)
[2021-02-14] MEDS: VENLAFAXINE XR 150 MG CAP.SR.24H PO SCH (09:10)
[2021-02-14] MEDS: CARVEDILOL 6.25 MG TABLET PO SCH ×2 (09:10→20:44)
[2021-02-14] MEDS: ACIDOPHILUS/BULGARICUS CHEW TAB PO SCH ×2 (09:10→20:43)
[2021-02-14] MEDS ORDERED: POTASSIUM CHLORIDE 20 MEQ POWDER PACKET PO ONE (09:30)
[2021-02-14] MEDS: POTASSIUM CHLORIDE 20 MEQ in IV NS 1000 ML 1,000 ML IV PRN ×2 (10:45→22:35)
--- NOTE | 2021-02-14 14:00 | NUR ---
Ismael discontinued. Will continue to monitor.
--- NOTE | 2021-02-14 19:27 | NUR ---
patient in bed awake. no signs of discomfort noted. Midline patent and flushed. will report to oncoming shift.
--- NOTE | 2021-02-14 19:30 | NUR ---
Patient report received from day shift. Patient seen sitting in bed. Alert and oriented x 4. She is very anxious and emotional. Calls for ativan. Patient has a Midline on right upper arm, patent, running NS with KCL 20 meq at 90cc/hr. Patient is continent and ambulatory. Bed in low and locked position. Safety precautions in place. Will continue to monitor.
[2021-02-14] MEDS: diphenhydrAMINE 50 MG CAPSULE PO SCH (20:44)
[2021-02-14] MEDS: TRIHEXYPHENIDYL HCL 2 MG TABLET PO SCH (20:46)
[2021-02-15] MEDS: LORAZEPAM 2 MG/1 ML VIAL IV PRN ×2 (04:05→08:45)
[2021-02-15 04:45] VITALS: BP 141/93
[2021-02-15] MEDS: LEVOTHYROXINE SODIUM 88 MCG TABLET PO SCH (06:00)
[2021-02-15] MEDS: PANTOPRAZOLE SODIUM 40 MG TABLET.DR PO SCH (06:00)
--- NOTE | 2021-02-15 06:32 | NUR ---
Patient resting in bed. Alert and oriented x 4. She slept intermittently at night. No reports of pain or shortness of breath at this time. Given Ativan q4h at night. Patient anxious and unable to sleep without it. Last Ativan given at 0405. Safety precautions in place. Bed in low and locked position. Call light within reach.
[2021-02-15 06:52] LABS: CREATININE 0.7 mg/dL (0.6-1.3); POTASSIUM 3.7 mmol/L (3.5-5.1)
[2021-02-15] MEDS: ACIDOPHILUS/BULGARICUS CHEW TAB PO SCH (08:11)
[2021-02-15] MEDS: VENLAFAXINE XR 150 MG CAP.SR.24H PO SCH (08:11)
[2021-02-15] MEDS: CLONAZEPAM 1 MG TABLET PO SCH (08:11)
[2021-02-15] MEDS: CARVEDILOL 6.25 MG TABLET PO SCH (08:11)
[2021-02-15] MEDS: POTASSIUM CHLORIDE 20 MEQ in IV NS 1000 ML 1,000 ML IV PRN (09:27)
[2021-02-15 11:38] VITALS: BP 104/64
[2021-02-15] MEDS ORDERED: PANT40TA2 PO (11:44)
[2021-02-15] MEDS ORDERED: CALC-1210 PO (11:46)
--- NOTE | 2021-02-15 12:00 | NUR ---
DC ORDERS RECEIVED NOTED AND CARRIED OUT.DC INSTRUCTION AND EDUCATION GIVEN TO THE PT DC [place] PER MD ORDERS.PT LEFT THE FACILITY VIA PRIVATE CAR IN STABLE CONDITION
== END 2021-02-15 12:02 | disposition home or self-care (01) | DRG 896 ==
LOC: ER 06:08 → TELE3 10:02 → MEDSURG3 02-14 08:20
PROVIDERS: ADMIT Nurse Practitioner Acute Care; ATTEND Nurse Practitioner Acute Care
PROC: 05H533Z Insertion of Infusion Device into Right Subclavian Vein, Percutaneous Approach (ICD-10-PCS; principal; 2021-02-13)
PROC: B546ZZA Ultrasonography of Right Subclavian Vein, Guidance (ICD-10-PCS; 2021-02-13)
DX: F10.139 Alcohol abuse with withdrawal, unspecified (principal); G92 Toxic encephalopathy; K85.20 Alcohol induced acute pancreatitis without necrosis or infection; M62.82 Rhabdomyolysis; F31.89 Other bipolar disorder; Z68.41 Body mass index [BMI] 40.0-44.9, adult; Y90.0 Blood alcohol level of less than 20 mg/100 ml; E66.01 Morbid (severe) obesity due to excess calories; E03.9 Hypothyroidism, unspecified; E87.6 Hypokalemia; F25.9 Schizoaffective disorder, unspecified; G89.4 Chronic pain syndrome; I10 Essential (primary) hypertension; Z91.19 Patient's noncompliance with other medical treatment and regimen; Z91.5 Personal history of self-harm; D72.829 Elevated white blood cell count, unspecified; R74.01 Elevation of levels of liver transaminase levels; F12.90 Cannabis use, unspecified, uncomplicated; F41.9 Anxiety disorder, unspecified; Z20.822 Contact with and (suspected) exposure to COVID-19; Z71.3 Dietary counseling and surveillance
CPT/HCPCS: 36415; 70450; 71045; 83605; 83690; 83735; 84100; 84443; 84703; 85025; 85730; 93005; A4663; C9113; G0378; G0480; J2001; J2060; J3480; J7030; J7040; J7060; Q0163

== ENCOUNTER 2021-02-17 07:19 | Emergency (ER) | payer MEDICARE, OTHER ==
[~2021-02-17] VITALS: Ht 157.5 cm; Wt 104.3 kg
[~2021-02-17 07:19] MED LIST changes: +CALC-1210 PO; +CARV6.25 PO; +DIPH50CA38 PO; +LEVO88TA2 PO; +PANT40TA2 PO
--- NOTE | 2021-02-17 07:33 | NUR ---
at bedside for assessment
[2021-02-17] MEDS ORDERED: LORAZEPAM 2 MG/1 ML VIAL IM ONE (07:45)
[2021-02-17] MEDS ORDERED: MELA5TAB PO (07:47)
[2021-02-17] MEDS ORDERED: HYDR50TA62 PO (07:47)
[2021-02-17] MEDS ORDERED: LORAZEPAM 2 MG/1 ML VIAL ONE (07:52)
[2021-02-17 08:05] VITALS: BP 129/76
--- NOTE | 2021-02-17 08:06 | NUR ---
Patient discharged to home in stable condition. Noted ambulating with steady. No signs of acute distress noted. Written and verbal after care instructions given. Patient verbalizes understanding of instructions. Stressed follow up or return to ER for worsening s/s.
== END 2021-02-17 07:50 | disposition home or self-care (01) ==
LOC: ER 07:19
DX: F41.9 Anxiety disorder, unspecified (principal); F10.20 Alcohol dependence, uncomplicated; Y90.9 Presence of alcohol in blood, level not specified; F31.9 Bipolar disorder, unspecified; G89.4 Chronic pain syndrome; E03.9 Hypothyroidism, unspecified; Z98.84 Bariatric surgery status; R00.0 Tachycardia, unspecified; Z68.41 Body mass index [BMI] 40.0-44.9, adult
CPT/HCPCS: 96372; 99283; J2060; A4663

== ENCOUNTER 2021-03-26 17:55 | Emergency (ER) | payer MEDICARE, OTHER ==
[~2021-03-26] VITALS: Ht 157.5 cm; Wt 104.3 kg
[~2021-03-26 17:55] MED LIST changes: +HYDR50TA62 PO; -LEVO75TA7 PO; -LORA-258 PO; +MELA5TAB PO; -POTA-10 PO
--- NOTE | 2021-03-26 18:13 | NUR ---
NOT IN WAITING ROOM WHEN CALLED
--- NOTE | 2021-03-26 18:28 | NUR ---
2ND CALL - STILL NOT IN WAITING ROOM
[2021-03-26] MEDS ORDERED: LORAZEPAM 0.5 MG TABLET PO ONE (19:15)
[2021-03-26] MEDS ORDERED: IV NORMAL SALINE 1000 ML BAG IV ONE ×2 (19:15)
[2021-03-26 19:27] LABS: HEMATOCRIT 36.3 % (31.2-41.9); MEAN CORPUSCULAR HEMOGLOBIN 25.2 uug (24.7-32.8); MEAN CORPUSCULAR VOLUME 78.9 fL (75.5-95.3); PLATELET COUNT (AUTO) 590 K/uL (179-408)
[2021-03-26] MEDS ORDERED: LORAZEPAM 1 MG TABLET ONE (19:33)
[2021-03-26 19:34] LABS: CREATININE 0.7 mg/dL (0.6-1.3); POTASSIUM 3.8 mmol/L (3.5-5.1)
[2021-03-26 19:40] LABS: BILIRUBIN,DIRECT 0.1 mg/dL (0.0-0.2); BILIRUBIN,TOTAL 0.4 mg/dL (0.2-1.0); TOTAL PROTEIN, SERUM 6.8 g/dL (6.4-8.2)
[2021-03-26 19:47] LABS: THYROID STIMULATING HORMONE 4.315 mIU/mL (0.358-3.740)
[2021-03-26] MEDS ORDERED: LORA-259 PO ×2 (20:55→20:58)
[2021-03-26 21:03] VITALS: BP 132/86
== END 2021-03-27 00:33 | disposition home or self-care (01) ==
LOC: ER 17:55
DX: F10.239 Alcohol dependence with withdrawal, unspecified (principal); Y90.2 Blood alcohol level of 40-59 mg/100 ml; F31.9 Bipolar disorder, unspecified; R00.0 Tachycardia, unspecified; E86.0 Dehydration; G89.4 Chronic pain syndrome; Z98.84 Bariatric surgery status; E07.9 Disorder of thyroid, unspecified; I10 Essential (primary) hypertension; Z88.6 Allergy status to analgesic agent; Z88.5 Allergy status to narcotic agent; Z79.890 Hormone replacement therapy; Z79.899 Other long term (current) drug therapy; Z90.721 Acquired absence of ovaries, unilateral
CPT/HCPCS: 36415; 84443; 85025; 93005; A4663; G0480; J7030

== ENCOUNTER 2021-03-27 05:48 | Emergency (ER) | payer MEDICARE, OTHER ==
[~2021-03-27] VITALS: Ht 157.5 cm; Wt 104.3 kg
[~2021-03-27 05:48] MED LIST changes: +LORA-259 PO
--- NOTE | 2021-03-27 06:23 | NUR ---
Patient discharged to home in stable condition. Verbal after care instructions given was given by Dr Velasquez. Patient verbalizes understanding of instructions. Stressed follow up or return to ER for worsening s/s.
== END 2021-03-27 06:28 | disposition home or self-care (01) ==
LOC: ER 05:48
DX: F10.20 Alcohol dependence, uncomplicated (principal); I10 Essential (primary) hypertension; E07.9 Disorder of thyroid, unspecified; Z79.890 Hormone replacement therapy; Z98.84 Bariatric surgery status; Z90.721 Acquired absence of ovaries, unilateral; F41.9 Anxiety disorder, unspecified; F31.9 Bipolar disorder, unspecified
CPT/HCPCS: A4663

== ENCOUNTER 2021-04-11 06:01 | Emergency (ER) | payer MEDICARE, OTHER ==
[~2021-04-11] VITALS: Ht 157.5 cm; Wt 104.3 kg
--- NOTE | 2021-04-11 06:32 | NUR ---
Patient walked into ER with c/o alcohol withdrawal, last etoh 16 hours ago. Patient c/o feeling shaking.
--- NOTE | 2021-04-11 06:43 | NUR ---
Dr. Eddy at bedside for MSE.
--- NOTE | 2021-04-11 06:46 | NUR ---
Resources provided to [facility].
[2021-04-11 06:49] VITALS: BP 144/86
== END 2021-04-11 06:49 | disposition home or self-care (01) ==
LOC: ER 06:25
DX: F10.229 Alcohol dependence with intoxication, unspecified (principal); G89.4 Chronic pain syndrome; F31.9 Bipolar disorder, unspecified; I10 Essential (primary) hypertension; Z76.5 Malingerer [conscious simulation]; E07.9 Disorder of thyroid, unspecified; Z98.84 Bariatric surgery status; Z79.890 Hormone replacement therapy; Z79.899 Other long term (current) drug therapy
CPT/HCPCS: A4663